=== PATIENT | female | born 1955 | race Two or more races ===

== ENCOUNTER → 2018-01-20 | Day surgery (SDC) | payer OTHER | END | disposition home or self-care (01) | LOC: FMAMMOTONE 08:37 | PROVIDERS: ATTEND Surgery | PROC: 0HBT3ZX Excision of Right Breast, Percutaneous Approach, Diagnostic (ICD-10-PCS; principal; 2018-01-20) | DX: R92.1 Mammographic calcification found on diagnostic imaging of breast (principal); Z53.8 Procedure and treatment not carried out for other reasons | CPT/HCPCS: 19081 ==

== ENCOUNTER 2020-06-19 13:06 | Inpatient (IN) | payer OTHER ==
[2020-06-19] MEDS ORDERED: SODIUM CHLORIDE 0.9% 1000 ML INFUS.BAG IV ONE (13:37)
[2020-06-19] MEDS ORDERED: ONDANSETRON 4 MG/2 ML VIAL IVPUSH ONE (13:37)
--- NOTE | 2020-06-19 13:42 | PDOC ---
History of Present Illness - General Chief Complaint: Lightheaded Stated Complaint: DIZZY, NAUSEA, VOMITING - History of Present Illness Initial Comments: 06/19/20 13:41 64 years old with past medical history significant for tension high cholesterol presents to the emergency department with 2 today 3-day history of lightheadedness worse with change in position associated with nausea and vomiting 2-3 episodes nonbilious non-bloody. Mild left upper quadrant pain. No headache. Denies chest pain shortness of breath but does endorse some left- sided shoulder discomfort. Symptoms are worse with standing alleviated by rest. 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 Past History - Medical History Allergies/Adverse Reactions: Allergies Allergy/AdvReac Type Severity Reaction Status Date / Time No Known Allergies Allergy Verified 05/20/13 20:07 Home Medications: Ambulatory Orders Amlodipine Besylate/Benazepril [Amlodipine-Benazepril 5-20 mg] 1 each PO DAILY 06/19/20 Atorvastatin Ca [Lipitor] 20 mg PO HS 06/19/20 Cyclobenzaprine HCl 5 mg PO DAILY 06/19/20 Ibuprofen 200 mg PO BID 06/19/20 COPD: No HTN: Yes - Reproductive History Is Patient Now?: No - Immunization History Immunization Up to Date: Yes - Psycho-Social/Smoking History Smoking Status: No Smoking History: Never smoked Have you smoked in the past 12 months: No Number of Cigarettes Smoked Daily: 0 Information on smoking cessation initiated: No - Substance Abuse Hx (Audit-C & DAST Scrn) How often the patient has a drink containing alcohol: Never Score: In Men: 4 or > Positive; In Women: 3 or > Positive: 0 Screen Result (Pos requires Nsg. Audit-10AR): Negative In the last yr the pt used illegal drug/Rx for NonMed reason: No Score: Yes response is considered Positive: 0 Screen Result (Positive result requires Nsg. DAST-10): Negative Review of Systems - Review of Systems Comments:: 06/19/20 13:41 ROS: A complete review of 10 out of 10 review of systems is taken and is negative apart from what is previously mentioned below and in the HPI. *Physical Exam - Vital Signs Last Vital Signs Temp Pulse Resp BP Pulse Ox 99 F 65 18 186/84 H 100 06/19/20 13:08 06/19/20 13:08 06/19/20 13:08 06/19/20 13:08 06/19/20 13:08 - Physical Exam 06/19/20 13:41 Vitals: Triage Vital signs reviewed General Appearance: No acute distress, well nourished well developed, Head: Atraumatic, Neck: Supple; no Nucal rigidity Chest Wall: Nontender Cardiac: Regular rate and rhythym, no murmurs, no rubs, no gallops, Lungs: Clear to auscultation bilateral, good air movement bilaterally, Abdomen: Soft, non distended, normal bowel sounds, non tender to palpation Extremities: Full range of motion to all extremities, no cyanosis, clubbing, or edema Skin: Warm and dry, no rashes or lesions, no rash, no petechiae Neuro: AOX3; cranial Nerves 2-12 grossly intact, strength intact to all extremities, sensation intact to all extremities, Slightly unsteady gait Psych: Normal mood, normal affect ED Treatment Course - LABORATORY CBC & Chemistry Diagram: 06/19/20 13:45 06/19/20 13:45 - RADIOLOGY Radiology Studies Ordered: Category Date Time Status HEAD CT (STROKE) [CT] Stat CT Scan 06/19/20 13:37 Ordered CXRPORT [CHEST X-RAY PORTABLE*] [RAD] Stat Radiology 06/19/20 13:29 Ordered Medical Decision Making - Medical Decision Making 06/19/20 13:40 EKG demonstrates sinus rhythm 79 bpm with frequent premature ventricular complexes in a pattern of bigeminy When compared to EKG from 2012 normal sinus rhythm no evidence of PVCs Dizzy with change in position lightheaded no chest pain but left arm discomfort stat EKG ordered. Will check head CT labs troponin observe and reassess Head CT demonstrates no acute pathology patient still with unsteady gait while ambulating. Head CT negative for acute pathology Given new bigeminy and lightheadedness will admit to medicine for further manag ement. Discharge - Discharge Information Problems reviewed: Yes Clinical Impression/Diagnosis: Lightheaded Condition: Stable - Admission Yes - Follow up/Referral - Patient Discharge Instructions - Post Discharge Activity
--- OUTSIDE RECORDS SUMMARY | 2020-06-19 13:58 | XMS ---
:1955 Author Organization [facility] Care Team Providers Name Role Phone Tom Carringtonel Unavailable Unavailable ZebJed Unavailable Unavailable Aszalos, Tarah Rachel Unavailable Unavailable Aszalos, Rachel Unavailable Unavailable Aszalos, Rachel Unavailable Unavailable Aszalos, Rachel Unavailable Unavailable Aszalos, Rachel Unavailable Unavailable Aszalos, Rachel Unavailable Unavailable Aszalos, Rachel Unavailable Unavailable Aszalos, Rachel Unavailable Unavailable Aszalos, Rachel Unavailable Unavailable NEUENDORF BLUE L Unavailable Unavailable Reeves, C Unavailable Unavailable Reeves, C Unavailable Unavailable Reeves, C Unavailable Unavailable Reeves, C Unavailable Unavailable Reeves, C Unavailable Unavailable Reeves, C Unavailable Unavailable Reeves, C Unavailable Unavailable Reeves, C Unavailable Unavailable Reeves, C Unavailable Unavailable Dallin Unavailable [phone] Mares Unavailable Unavailable Mares Unavailable Unavailable Mares Unavailable Unavailable Mares Unavailable Unavailable Mares Unavailable Unavailable Mares Unavailable Unavailable Mares Unavailable Unavailable Mares Unavailable Unavailable Mares Unavailable Unavailable Mares Unavailable Unavailable Amarga Unavailable Unavailable Amarga Unavailable Unavailable Aszalos, Rachel Unavailable Unavailable Aszalos, Rachel Unavailable Unavailable Aszalos, Rachel Unavailable Unavailable Aszalos, Rachel Unavailable Unavailable Aszalos, Rachel Unavailable Unavailable Aszalos, Rachel Unavailable Unavailable Aszalos, Rachel Unavailable Unavailable Aszalos, Rachel Unavailable Unavailable Aszalos, Rachel Unavailable Unavailable Brain, Mallorie ROSA Unavailable Unavailable Brain, Mallorie ROSA Unavailable Unavailable Brain, Mallorie ROSA Unavailable Unavailable Brain, Mallorie ROSA Unavailable Unavailable Brain, Mallorie MD Unavailable Unavailable Brain, Mallorie MD Unavailable Unavailable Brain, Mallorie MD Unavailable Unavailable Brain, Mallorie ROSA Unavailable Unavailable Brain, Mallorie ROSA Unavailable Unavailable Brain, Mallorie ROSA Unavailable Unavailable Brain, Mallorie ROSA Unavailable Unavailable Brain, Mallorie ROSA Unavailable Unavailable Brain, Mallorie ROSA Unavailable Unavailable Brain, Mallorie ROSA Unavailable Unavailable Brain, Mallorie ROSA Unavailable Unavailable [place], M Unavailable [phone] [place], M Unavailable [phone] [place], M Unavailable [phone] BETH GARCIA Unavailable Unavailable ZUNASSIGNED Unavailable Unavailable Ringstad Unavailable Unavailable Ringstad Unavailable Unavailable Ringstad Unavailable Unavailable Ringstad Unavailable Unavailable Ringstad Unavailable Unavailable Ringstad Unavailable Unavailable Ringstad Unavailable Unavailable Ringstad Unavailable Unavailable [place] Unavailable Unavailable [place] Unavailable Unavailable [place] Unavailable Unavailable CHAMBERLAIN BERE Brand Unavailable Unavailable ZUNASSIGNED@, Unavailable Unavailable Re-disclosure Warning The records that you are about to access may contain information from federally- assisted alcohol or drug abuse programs. If such information is present, then the following federally mandated warning applies: This information has been disclosed to you from records protected by federal confidentiality rules (42 CFR part 2). The federal rules prohibit you from making any further disclosure of this information unless further disclosure is expressly permitted by the written consent of the person to whom it pertains or as otherwise permitted by 42 CFR part 2. A general authorization for the release of medical or other information is NOT sufficient for this purpose. The Federal rules restrict any use of the information to criminally investigate or prosecute any alcohol or drug abuse patient.The records that you are about to access may contain highly sensitive health information, the redisclosure of which is protected by Article 27-F of the [facility] Public Health law. If you continue you may haveaccess to information: Regarding HIV / AIDS; Provided by facilities licensed or operated by the [facility] Office of Mental Health; or Provided by the [facility] Office for People With Developmental Disabilities. If such information is present, then the following [facility] mandated warning applies: This information has been disclosed to you from confidential records which are protected by state law. State law prohibits you from making any further disclosure of this information without the specific written consent of the person to whom it pertains, or as otherwise permitted by law. Any unauthorized further disclosure in violation of state law may result in a fine or custodial sentence or both. A general authorization for the release of medical or other information is NOT sufficient authorization for further disclosure. Family History Family Member Family Member Family Member Date of Description Data Source(s) Name Gender Status Status Unknown Female Problem 03/13/2016 STEPHANIE ([facility] ([facility]) 12:00:00 AM [facility] EDT Center) Encounters Encounter Providers Location Date Indications Data Source(s ) Outpatient Attender: Jeanne Aguilar 05/31/2020 [facility] Saroj ephs VelezAdmitter: 11:23:00 Medical nter Jeanne EDT VelezReferrer: Jeanne Mares OutpatientOFFICE/ Attender: [facility] 05/31/2020 STEPHANIE ([facility] OUTPATIENT VISIT, [facility] 11:23:00 [facility] EDT - Center) 05/31/2020 11:23:00 AM EDT Outpatient Attender: 05/31/2020 [facility] Amy ZUNASSIGNEDAdmitt 10:42:00 Medical Center er: AM EDT ZUNASSIGNEDReferr er: [id number] ZUNASSIGNED@, Outpatient Admitter: [id number] 05/31/2020 [facility] ZUNASSIGNED@,Refe 12:00:00 Medical Center rrer: [id number] AM EDT ZUNASSIGNED@, Outpatient Attender: 05/30/2020 [facility] Amy ZUNASSIGNEDAdmitt 10:14:00 [facility] Center er: AM EDT ZUNASSIGNEDReferr er: [id number] ZUNASSIGNED@, Outpatient Admitter: [id number] 05/30/2020 [facility] ZUNASSIGNED@,Refe 12:00:00 Medical Center rrer: [id number] AM EDT ZUNASSIGNED@, (TEL) [address] 05/17/2020 eCW1 ([facility] 12:00:00 Amy Medic al AM EDT Practice PC) (TEL) [address] 05/16/2020 eCW1 ([facility] 12:00:00 Amy Medic al AM EDT Practice PC) (TEL) [address] 05/16/2020 eCW1 ([facility] 12:00:00 Amy Medic al AM EDT Practice PC) Outpatient Attender: CHRISTEL Aguilar 05/15/2020 [facility] CHRISTEL 09:53:00 Medical Cent er MARTINAdmitter: AM EDT CHRISTEL GARCIAReferrer: CHRISTEL GARCIA [facility] ([facility] 09:53:00 Amy Medic al AM EDT - Center) 05/15/2020 09:53:00 AM EDT (TEL) [address] 05/15/2020 eCW1 ([facility] 12:00:00 Amy Medic al AM EDT Practice PC) (TEL) [address] 05/15/2020 eCW1 ([facility] 12:00:00 Amy Medic al AM EDT Practice PC) Outpatient 05/10/2020 [facility] 03:15:00 Medical Center PM EDT Outpatient 05/10/2020 [facility] 03:11:00 Medical Center PM EDT Outpatient Attender: CHRISTEL Aguilar 05/10/2020 [facility] 08:31:00 Medical Cent er MARTINAdmitter: AM EDT CHRISTEL GARCIAReferrer: CHRISTEL GARCIA Attender: Charles 05/10/2020 [facility] ( [facility] 08:31:00 Amy Medic al AM EDT - Center) 05/10/2020 08:31:00 AM EDT Outpatient 05/10/2020 [facility] 12:00:00 Medical Center AM EDT Outpatient [address] 05/10/2020 eCW1 ([facility] 12:00:00 Amy Medic al AM EDT Practice PC) Attender: [facility] 05/09/2020 [facility] ([facility] 09:55:00 Amy Medica l AM EDT - Center) 05/09/2020 09:55:00 AM EDT Outpatient 04/26/2020 [facility] 04:00:00 Medical Center PM EDT Outpatient Attender: CHRISTEL Aguilar 04/26/2020 [facility] CHRISTEL 01:47:00 Medical Cent er RADHAAdmitter: PM EDT CHRISTEL KEARNEY RADHAReferrer: CHRISTEL KEARNEY MARTIN Attender: Charles 04/26/2020 NEXTGEN ( [facility] Dallin 01:47:00 Amy Medic al PM EDT - Center) 04/26/2020 01:47:00 PM EDT Outpatient [address] 04/26/2020 eCW1 ([facility] 12:00:00 Amy Medic al AM EDT Practice PC) Outpatient 04/26/2020 [facility] 12:00:00 Medical Center AM EDT Outpatient Attender: Jeanne Aguilar 04/24/2020 [facility] Saroj yash MaresAdmitter: 05:23:00 Medical Ce nter Jeanne PM EDT VelezReferrer: Jeanne Mares OutpatientOFFICE/ Attender: [facility] 04/24/2020 [facility] ([facility] 05:23:00 Amy Medical EST PM EDT - Center) 04/24/2020 05:23:00 PM EDT Outpatient Attender: BERE Aguilar 04/23/2020 [facility] 01:03:00 Medical Felipe BLACKBURN PM EDT MAdmitter: BERE BLACKBURN MReferrer: BERE Brand Outpatient Attender: BERE Aguilar 04/23/2020 [facility] 08:20:00 Jose Guadalupe BLACKBURN AM EDT MAdmitter: BERE BLACKBURN MReferrer: BERE Brand Attender: Bere 04/23/2020 STEPHANIE ([facility] 08:20:00 Amy Medic al AM EDT - Center) 04/23/2020 08:20:00 AM EDT Outpatient Attender: BLUE Aguilar 04/18/2020 [facility] MC[facility] 07:14:00 Medical C enter LAdmitter: BLUE AM EDT LUZ MCARTHUR LReferrer: BLUE Muñoz Outpatient [address] 04/10/2020 eCW1 ([facility] 12:00:00 Amy Medic al AM EDT Practice PC) Outpatient 04/03/2020 [facility] 03:06:00 Medical Center PM EDT Outpatient Attender: Jeanne Aguilar 04/03/2020 [facility] VelezAdmitter: 01:26:00 Medical Ce nter Jeanne PM EDT VelezReferrer: Jeanne Mares OutpatientOFFICE/ Attender: [facility] 04/03/2020 N EXTGEN ([facility] OUTPATIENT VISIT, [facility] 01:26:00 Amy Medical EST PM EDT - Center) 04/03/2020 01:26:00 PM EDT Outpatient 04/03/2020 [facility] 12:00:00 Medical Center AM EDT Attender: [facility] 04/02/2020 NEXTGEN ([facility] 10:21:00 Amy Medica l AM EDT - Center) 04/02/2020 10:21:00 AM EDT Outpatient 03/06/2020 [facility] 02:18:00 Medical Center PM EDT Outpatient Attender: Jeanne Aguilar 03/06/2020 [facility] VelezAdmitter: 01:33:00 Medical Ce nter Jeanne PM EDT VelezReferrer: Jeanne Mares OutpatientOFFICE/ Attender: [facility] 03/06/2020 N EXTGEN ([facility] OUTPATIENT VISIT, [facility] 01:33:00 Amy Medical EST PM EDT - Center) 03/06/2020 01:33:00 PM EDT Outpatient 03/06/2020 [facility] 12:00:00 Medical Center AM EDT Attender: [facility] 03/02/2020 NEXTGEN ([facility] 09:54:00 Amy Medica l AM EDT - Center) 03/02/2020 09:54:00 AM EDT Attender: [facility] 01/17/2020 NEXTGEN ([facility] 11:53:00 Amy Medical AM EDT - Center) 01/17/2020 11:53:00 AM EDT [facility] 12/21/[facility] BARRY N ([facility] 02:38:00 Amy Medic al PM EDT - Center) 12/21/2019 02:38:00 PM EDT [facility] 11/16/2019 [facility] ([facility] 04:17:00 Amy Medic al PM EDT - Center) 11/16/2019 04:17:00 PM [facility] N ([facility] Brain ROSA [place] 02:56:00 Amy Medica l PM EST - Center) 10/31/2019 02:56:00 PM EST Outpatient 10/25/2019 [facility] 04:21:00 Medical [place] PM EST Outpatient Attender: Tarah Aguilar 10/25/2019 [facility] AszalosAdmitter: 09:04:00 [facility] AM EST AszalosReferrer: Tarah Cassidy OutpatientOFFICE/ [facility] 10/25/2019 STEPHANIE ([facility] OUTPATIENT VISIT, [facility] 09:04:00 Sudheer s Medical EST AM EST - Center) 10/25/2019 09:04:00 AM EST Outpatient 10/25/2019 [facility] 12:00:00 Medical [place] AM EST Outpatient 06/09/2019 [facility] 11:32:00 Medical [place] AM EDT Outpatient Attender: Tarah Aguilar 06/09/2019 [facility] Saroj lewis AszalosAdmitter: 08:58:00 Medical [facility] AM EDT AszalosReferrer: Tarah Cassidy OutpatientOFFICE/ Attender: [facility] 06/09/2019 Olivier AUGUST ([facility] 08:58[facility] Amy Medical EST AM EDT - Center) 06/09/2019 08:58:00 AM EDT Outpatient 06/09/2019 [facility] 12:00:00 Medical [place] AM EDT Attender: [facility] 06/07/2019 [facility] Amy Medica l AM EDT - Center) 06/07/2019 09:18:00 AM EDT [facility] 05/05/2019 BARRY N ([facility] Brain ROSA [place] 11:09:00 Amy Medica l AM EDT - Center) 05/05/2019 11:09:00 AM EDT Attender: [facility] 04/25/2019 BARRY Aguayo ([facility] 03:53:00 Amy Medica l PM EDT - Center) 04/25/2019 03:53:00 PM EDT Immunizations Vaccine Date Status Description Data Source(s) New in 2012. IIV4 05/31/2020 completed Influenza, Injectable, NEXTGEN ([facility] 12:00:[address] [facility] Center) Source: New Immunization Record Medications Medication Brand Start Product Dose Route Administrative Pharm[facility] Indications Reaction Description Data Name Date Form Instructions Instructions Source(s) Ibuprofen ibupro ORAL active take 1 NE XTGEN 200 MG Oral fen 2019 {caps capsule by ( [facility] Capsule 200 mg 12:00: ule} oral route Ruma sephs ibuprofen capsul 00 AM every 6 Medi wojciech 200 mg e EDT hours as Center) capsule needed Cyclobenzap cyclob ORAL active take 1 NEXTGEN rine enzapr 2019 {tabl tablet by (Saint hydrochlori ine 5 12:00: et} oral route 3 Amy de 5 MG mg 00 AM times every Medi wojciech Oral Tablet tablet EDT day Center ) cyclobenzap rine 5 mg tablet Amlodipine amlodi ORAL active take 1 N EXTGEN 5 MG / pine 5 2019 {caps capsule by (Jose Alejandro nt Benazepril mg-tony 12:00: ule} oral route Amy hydrochlori azepri 00 AM every day Medical de 20 MG l 20 EDT Center) Oral mg Capsule capsul amlodipine e 5 mg-benazepr il 20 mg capsule Amlodipine Amlodi .0 suspend Amlodip ine eCW1 5 MG / pine 2019 {tabl ed Besy-Benazep (Jose Alejandro nt Benazepril Besy-B 12:00: et} ril HCl 5- 20 Amy hydrochlori enazep 00 AM MG Medic al de 20 MG ril EDT Practice Oral HCl PC) Capsule 5-20 Amlodipine MG Besy-Benaze pril HCl 5-20 MG Amlodipine Amlodi .0 suspend Amlodip ine eCW1 5 MG / pine 2019 {tabl ed Besy-Benazep (Jose Alejandro nt Benazepril Besy-B 12:00: et} ril HCl 5- 20 Amy hydrochlori enazep 00 AM MG Medic al de 20 MG ril EDT Practice Oral HCl PC) Capsule 5-20 Amlodipine MG Besy-Benaze pril HCl 5-20 MG Amlodipine Amlodi .0 suspend Amlodip ine eCW1 5 MG / 2019 {tabl ed Besy-Benazep (Jose Alejandro nt Benazepril Besy-B 12:00: et} ril HCl 5- 20 Amy hydrochlori enazep 00 AM MG Medic al de 20 MG ril EDT Practice Oral HCl PC) Capsule 5-20 Amlodipine MG Besy-Benaze pril HCl 5-20 MG Amlodipine Amlodi .0 suspend Amlodip ine eCW1 5 MG / 2019 {tabl ed Besy-Benazep (Jose Alejandro nt Benazepril Besy-B 12:00: et} ril HCl 5- 20 Amy hydrochlori enazep 00 AM MG Medic al de 20 MG ril EDT Practice Oral HCl PC) Capsule 5-20 Amlodipine MG Besy-Benaze pril HCl 5-20 MG Amlodipine Amlodi .0 suspend Amlodip ine eCW1 5 MG / 2019 {tabl ed Besy-Benazep (Jose Alejandro nt Benazepril Besy-B 12:00: et} ril HCl 5- 20 Amy hydrochlori enazep 00 AM MG Medic al de 20 MG ril EDT Practice Oral HCl PC) Capsule 5-20 Amlodipine MG Besy-Benaze pril HCl 5-20 MG Amlodipine Amlodi .0 suspend Amlodip ine eCW1 5 MG / 2019 {tabl ed Besy-Benazep (Jose Alejandro nt Benazepril Besy-B 12:00: et} ril HCl 5- 20 Amy hydrochlori enazep 00 AM MG Medic al de 20 MG ril EDT Practice Oral HCl PC) Capsule 5-20 Amlodipine MG Besy-Benaze pril HCl 5-20 MG Amlodipine Amlodi .0 suspend Amlodip ine eCW1 5 MG / 2019 {tabl ed Besy-Benazep (Jose Alejandro nt Benazepril Besy-B 12:00: et} ril HCl 5- 20 Amy hydrochlori enazep 00 AM MG Medic al de 20 MG ril EDT Practice Oral HCl PC) Capsule 5-20 Amlodipine MG Besy-Benaze pril HCl 5-20 MG POLYETHYLEN Nulyte 04/10/ active Nulytel y eCW1 E GLYCOL ly 2020 with Flavor (Jose Alejandro nt [phone] with 12:00: Packs 420 GM J osephs MG/ML / Flavor 00 AM Medical Potassium Packs EDT Practice Chloride 420 GM PC) 0.48396 MEQ/ML / Sodium Bicarbonate 0.017 MEQ/ML / Sodium Chloride 0.0479 MEQ/ML Oral Solution [NuLytely] Nulytely with Flavor Packs 420 GM Hydrochloro hydroc ORAL active take 1 NEXTGEN thiazide 25 hlorot 2020 {tabl tablet by ([facility] MG Oral hiazid 12:00: et} oral route Ruma sephs Tablet e 25 00 AM every day Medical hydrochloro mg EDT Center) thiazide 25 tablet mg tablet Aspirin 81 aspiri ORAL active take 1 N EXTGEN MG Delayed n 81 2020 {tabl tablet by (Sa int Release mg 12:00: et} oral route Christel phs Oral Tablet tablet 00 AM every day Medical aspirin 81 ,delay EDT Center) mg ed tablet,genevieve releas yed release e atorvastati atorva ORAL active take 1 NEXTGEN n 20 MG statin 2020 {tabl tablet by (Jose Alejandro nt Oral Tablet 20 mg 12:00: et} oral route Amy atorvastati tablet 00 AM every day Medical n 20 mg EDT Center) tablet Centrum multiv 03/06/ active take one NE XTGEN Silver it-min 2020 tablet a day (Sa int Women 8 mg /iron/ 12:00: adan Arroyo hs iron-400 folic/ 00 AM prescribed La dical mcg-300 mcg lutein EDT Center ) tablet Hydrochloro hydroc ORAL complet take 1 NEXTGEN thiazide 25 hlorot 2020 {tbl} ed tablet by (Saint MG Oral hiazid 12:00: oral route Ruma sephs Tablet e 25 00 AM every day Medical hydrochloro mg EDT Center) thiazide 25 tablet mg tablet Hydrochloro hydroc ORAL complet take 1 NEXTGEN thiazide 25 hlorot 2020 {tbl} ed tablet by (Saint MG Oral hiazid 12:00: oral route Ruma sephs Tablet e 25 00 AM every day Medical hydrochloro mg EST Center) thiazide 25 tablet mg tablet Shingrix 0.5 ML 06/09/ 0.50 INTRAM active 0.5 ML N EXTGEN (PF) 50 varice 2019 mL USCULA varicella (Sa int mcg/0.5 mL lla 12:00: R zoster virus Amy intramuscul zoster 00 AM glycoprote in Medical ar virus EDT E, Center) suspension, glycop recombinant kit rotein 0.1 MG/ML E, Injection recomb [Shingrix] inant 0.1 MG/ML Inject ion please administer atorvastatin 10 ATORVASTATIN 04/25/2019 completed TAKE 1 NEXTGEN MG Oral Tablet CALCIUM 10MG TAB 12:00:00 AM TABLET BY ( ATORVASTATIN EDT ORAL ROUTE J osephs CALCIUM 10MG TAB EVERY DA Y Medical IN THE [place]) EVENING Amoxicillin 875 Augmentin 875 04/15/2019 completed Amoxicillin NEXTGEN MG / Clavulanate mg-125 mg tablet 12:00:00 AM 875 MG / (Saint 125 MG Oral EDT Clavulanate J osephs Tablet 125 MG Oral Medica l [Augmentin] Tablet [place] ) Augmentin 875 [Augmentin] mg-125 mg tablet Hydrochlorothiazi hydrochlorothiazi 03/14/2019 1 ORAL com pleted take 1 NEXTGEN de 25 MG Oral de 25 mg tablet 12:00:00 AM . tablet by ( Tablet EDT 0 oral route Amy hydrochlorothiazi 0 every d ay Medical de 25 mg tablet { [facility]) t b l } atorvastatin 10 atorvastatin 10 06/17/2018 1 ORAL complet ed take 1 NEXTGEN MG Oral Tablet mg tablet 12:00:00 AM . tablet by ( atorvastatin [address] Amy mg tablet 0 every day Medic al { [place]) t b l } Aspirin 81 MG aspirin 81 mg 06/17/2018 completed chew 1 NEXTGEN Chewable Tablet chewable tablet 12:00:00 AM tablet ( aspirin 81 mg EDT (81MG) by Amy chewable tablet oral rout e Medical every day [place]) Insurance Providers Payer name Policy type Policy ID Covered Covered constitution party's Policy P shanita / Coverage constitution party ID relationship to [place] [facility] ormation type [place]ark SELF PAY SP INSURANCE [employer] W [id number] 01 [id number] [place] [id number] 01 [id number] [place] O [id number] 01 [id number] 200 [employer]ENTIALS-[employer] MMERCIAL W [id number] Problems, Conditions, and Diagnoses Code Display Name Description Problem Type Effective Data Dates Source(s) I10 [id number] Essential Problem 04/26/2020 eCW1 ([facility] hypertension 12:00:00 AM [facility]) Z23 Encounter for ENCOUNTER FOR Diagnosis 05/31/2020 [facility] immunization IMMUNIZATION 11:23:00 AM [facility] M43.6 Torticollis TORTICOLLIS Diagnosis 05/31/2020 [facility] 11:23:00 AM [facility] R94.31 Abnormal ABNORMAL Diagnosis 05/15/2020 [facility] electrocardiogram ELECTROCARDIOGRAM 09:53:00 AM [facility] [ECG] [EKG] (ECG) (EKG) [facility] R00.1 Bradycardia, BRADYCARDIA, Diagnosis 05/10/2020 [facility] unspecified UNSPECIFIED 08:31:00 AM [facility] I10 Essential (primary) ESSENTIAL (PRIMARY) Diagnosis 020 [facility] hypertension HYPERTENSION 08:31:00 AM [facility] E78.5 Hyperlipidemia, HYPERLIPIDEMIA, Diagnosis 04/03/2020 Srinivasan t unspecified UNSPECIFIED 01:26:00 PM [facility] R73.03 Prediabetes PREDIABETES Diagnosis 04/03/2020 [facility] 01:26:00 PM [facility] Z71.89 Other specified OTHER SPECIFIED Diagnosis 03/06/2020 Srinivasan t counseling COUNSELING 01:33:00 PM [facility] Z71.3 Dietary counseling DIETARY COUNSELING Diagnosis 0 [facility] and surveillance AND SURVEILLANCE 01:33:00 PM [facility] M21.249 Flexion deformity, FLEXION DEFORMITY, Diagnosis 0 [facility] unspecified finger UNSPECIFIED FINGER 01:33:00 PM [facility] joints JOINTS [facility] Z12.11 Encounter for ENCOUNTER FOR Diagnosis 03/06/2020 [facility] screening for SCREENING FOR 01:33:00 PM [facility] malignant neoplasm of MALIGNANT NEOPLASM [facility] colon OF COLON Center Z71.9 Counseling, COUNSELING, Diagnosis 10/25/2019 unspecified UNSPECIFIED 09:04:[address] [facility] N63.10 Unspecified lump in UNSPECIFIED LUMP IN Diagnosis 020 [facility] the right breast, THE RIGHT BREAST, 09:04:00 AM [facility] unspecified quadrant UNSPECIFIED QUADRANT [facility] Z12.31 Encounter for ENCNTR SCREEN Diagnosis 10/25/2019 [facility] screening mammogram MAMMOGRAM FOR 09:04:00 AM J osephs for malignant MALIGNANT NEOPLASM EST Med ical neoplasm of breast OF BREAST [place] M25.512 Pain in left shoulder PAIN IN LEFT Diagnosis 10/25/2019 S aint SHOULDER 09:04:[address] [facility] E66.9 Obesity, unspecified OBESITY, UNSPECIFIED Diagnosis 06/09 [facility] 08:58:00 AM [facility] Z00.00 Encounter for general ENCNTR FOR GENERAL Diagnosis 2018 [facility] adult medical ADULT MEDICAL EXAM 08:58:00 AM Ruma sephs examination without W/O ABNORMAL EDT Med ical abnormal findings FINDINGS Center Surgeries/Procedures Procedure Description Date Indications Data Source(s) Influenza, Injectable, 3 05/31/2020 NEX TGEN ([facility] Yrs Or Older 12:00:[address] [facility] - 05/31/2020 [place]) 12:00:00 AM EDT Immunization 05/31/2020 NEXTGEN ([facility] Administration 12:00:00 AM EDT [facility] dical - 05/31/2020 [place]) 12:00:00 AM EDT OFFICE/OUTPATIENT VISIT, 05/31/2020 NEX TGEN ([facility] EST 12:00:00 AM EDT [facility] 05/31/2020 [place]) 12:00:00 AM EDT OFFICE/OUTPATIENT VISIT, 04/24/2020 NEX TGEN ([facility] EST 12:00:[address] [facility] - 04/24/2020 [place]) 12:00:00 AM EDT OFFICE/OUTPATIENT VISIT, 04/03/2020 NEX TGEN ([facility] EST 12:00:[address] [facility] - 04/03/2020 [place]) 12:00:00 AM EDT OFFICE/OUTPATIENT VISIT, 03/06/2020 NEX TGEN [facility] [place] 12:00:00 AM EDT ROUTINE VENIPUNCTURE 03/06/2020 NEXTGEN ([facility] 12:00:[address] [facility] - 03/06/2020 [place]) 12:00:00 AM EDT OFFICE/OUTPATIENT VISIT, 10/25/2019 NEX TGEN ([facility] EST 12:00:[address] [facility] - 10/25/2019 [place]) 12:00:00 AM EST OFFICE/OUTPATIENT VISIT, 06/09/2019 NEX TGEN ([facility] EST 12:00:[address] [facility] - 06/09/2019 [place]) 12:00:00 AM EDT ROUTINE VENIPUNCTURE 06/09/2019 NEXTGEN ([facility] 12:00:[address] [facility] - 06/09/2019 [place]) 12:00:00 AM EDT Results ID Date Data Source [id number] 06/05/2020 12:00:00 PM EDT [facility] Name Value Range Interpretation Description Data Sup porting Code Source(s) Document(s ) SARS [facility] coronavirus 2 RNA This lab was ordered by [facility] and reported by [email or web address]. ID Date Data Source GFR(Creatinine).[id number] 05/10/2020 03:15:00 PM EDT [facility] 0-0400 Name Value Range Interpretation Code Description Data Val rce(s) Supporting Document(s ) UNK > 60 Below low normal <content [facility] styleCode="Bold"> Medical Cent er EGFR </content>48 GFR L<content styleCode="Italic s"> (> 60 GFR)</content> ID Date Data Source BMP.[id number] 05/10/2020 03:15:00 PM EDT [facility] Name Value Range Interpretation Description Data Sup porting Code Source(s) Document(s ) Chloride 98-107 <content [facility] [Moles/volume] styleCode="Dinesh Amy in Serum or d">Chloride Medical Plasma </content>103 Center MEQ/L<content styleCode="Maricarmen lics"> (98-107 MEQ/L)</conten t> Sodium 137-145 <content [facility] [Moles/volume] styleCode="Dinesh Amy in Serum or d">Sodium Medical Plasma </content>138 Center MEQ/L<content styleCode="Maricarmen lics"> (137-145 MEQ/L)</conten t> Carbon 22-30 <content [facility] dioxide, total styleCode="Dinesh Amy [Moles/volume] d">Carbon Medical in Serum or Dioxide Center Plasma </content>29 MEQ/L<content styleCode="Maricarmen lics"> (22-30 MEQ/L)</conten t> Potassium 3.5-5.3 <content [facility] [Moles/volume] styleCode="Dinesh Amy in Serum or d">Potassium Medical Plasma </content>4.1 Center MEQ/L<content styleCode="Maricarmen lics"> (3.5-5.3 MEQ/L)</conten t> UNK 7-17 <content [facility] styleCode="Dinesh Amy d">BUN Medical </content>17 Center MG/DL<content styleCode="Maricarmen lics"> (7-17 MG/DL)</conten t> Calcium 8.4-10.2 <content [facility] [Mass/volume] styleCode="Dinseh Amy in Serum or d">Calcium Medical Plasma </content>9.8 Center MG/DL<content styleCode="Maricarmen lics"> (8.4-10.2 MG/DL)</conten t> Glucose 74-106 <content [facility] [Mass/volume] styleCode="Dinesh Amy in Serum or d">Glucose Medical Plasma </content>91 Center MG/DL<content styleCode="Maricarmen lics"> (74-106 MG/DL)</conten t> UNK > 60 Below low normal <content [facility] styleCode="Dinesh Amy d">EGFR Medical </content>48 Center GFR L<content styleCode="Maricarmen lics"> (> 60 GFR)</content> Creatinine 0.5-1.3 <content [facility] [Mass/volume] styleCode="Dinesh Amy in Serum or d">Creatinine Medical Plasma </content>1.2 Center MG/DL<content styleCode="Maricarmen lics"> (0.5-1.3 MG/DL)</conten t> ID Date Data Source cvc ecg 05/10/2020 04:50:19 AM EDT eCW1 ([facility] ) Name Value Range Interpretation Code Description Data Val rce(s) Supporting Document(s ) cvc ecg eCW1 ([facility]) ID Date Data Source ECG Midmark 05/10/2020 03:45:51 AM EDT eCW1 ([facility]) Name Value Range Interpretation Code Description Data Val rce(s) Supporting Document(s ) ECG Midmark eCW1 ([facility]) ID Date Data Source Echocardiogram 05/08/2020 12:45:43 PM EDT eCW1 ([facility]) Name Value Range Interpretation Code Description Data Val rce(s) Supporting Document(s ) Echocardiogram eCW1 ([facility]) ID Date Data Source [id number] 04/18/2020 12:00:00 AM EDT [facility] Name Value Range Interpretation Code Description Data Val rce(s) Supporting Document(s ) 2019-nCoV [facility] RNA XXX DELVIS+probe- Imp This lab was ordered by [facility] and reported by [email or web address] [facility]. ID Date Data Source Liver 03/08/2020 10:40:[address] [facility] Profile.[id number] Name Value Range Interpretation Description Data Sup porting Code Source(s) Document(s ) Alkaline 38-126 <content [facility] phosphatase styleCode="Bold"> Amy [Enzymatic Alkaline Medical activity/volume] Phosphatase (ALP) Cente r in Serum or Plasma </content>72 IU/L<content styleCode="Italic s"> (38-126 IU/L)</content> Aspartate 14-36 <content [facility] aminotransferase styleCode="Bold"> [facility] hs [Enzymatic Aspartate Medical activity/volume] Aminotransferase Center in Serum or Plasma (AST) </content>25 IU/L<content styleCode="Italic s"> (14-36 IU/L)</content> Alanine 7-30 <content [facility] aminotransferase styleCode="Bold"> Cruz hs [Enzymatic Alanine Medical activity/volume] Aminotransferase Center in Serum or Plasma (ALT) </content>11 IU/L<content styleCode="Italic s"> (7-30 IU/L)</content> Bilirubin.total 0.2-1.3 <content [facility] [Mass/volume] in styleCode="Bold"> [facility] hs Serum or Plasma Bilirubin Total Medical </content>0.7 Center MG/DL<content styleCode="Italic s"> (0.2-1.3 MG/DL)</content> Albumin 3.5-5.0 <content [facility] [Mass/volume] in styleCode="Bold"> Cruz hs Serum or Plasma Albumin Medical </content>3.8 Center G/DL<content styleCode="Italic s"> (3.5-5.0 G/DL)</content> ID Date Data Source LIPID.[id number] 03/08/2020 10:40:00 AM EDT [facility] Name Value Range Interpretation Description Data Sup porting Code Source(s) Document(s ) Triglyceride < 150 <content [facility] [Mass/volume] in styleCode="[facility] Serum or Plasma d">Triglycerid [facility] </content>58 MG/DL<content styleCode="Maricarmen lics"> (< 150 MG/DL)</conten t> UNK > 60 Below low normal <content [facility] styleCode="[facility] d">HDL- Medical Cholesterol [place] </content>54 MG/DL L<content styleCode="Maricarmen lics"> (> 60 MG/DL)</conten t> Cholesterol -<200 <content [facility] [Mass/volume] in styleCode="[facility] Serum or Plasma d">Cholesterol Medical </content>183 Center MG/DL<content styleCode="Maricarmen lics"> (-<200 MG/DL)</conten t> UNK < 100 Above high normal <content [facility] styleCode="Dinesh Amy d">LDL-Cholest [facility] </content>117 MG/DL H<content styleCode="Maricarmen lics"> (< 100 MG/DL)</conten t> ID Date Data Source HematologyRou.[id number] 03/08/2020 10:40:00 AM EDT [facility] 0400 Name Value Range Interpretation Description Data Sup porting Code Source(s) Document(s ) Leukocytes 4.4-11.0 <content [facility] [#/volume] in styleCode="Bold Amy Blood by ">White Blood Medical Automated count Cell Count Center </content>4.87 KCUMM<content styleCode="Ital ics"> (4.4-11.0 KCUMM)</content > Erythrocytes 4.0-5.1 Below low normal <content [facility] [#/volume] in styleCode="Bold Amy Blood by ">Red Blood Medical Automated count Cell Count Center </content>3.88 MCUMM L<content styleCode="Ital ics"> (4.0-5.1 MCUMM)</content > Hemoglobin 12.3-16. Below low normal <content [facility] [Mass/volume] in 0 styleCode="Bold Amy Blood ">Hemoglobin Medical </content>11.9 Center G/DL L<content styleCode="Ital ics"> (12.3-16.0 G/DL)</content> Erythrocyte mean 80.0-100 <content [facility] corpuscular .0 styleCode="Bold Amy volume [Entitic ">Mean Medical volume] by Corpuscular Center Automated count Volume </content>94.3 FL<content styleCode="Ital ics"> (80.0-100.0 FL)</content> Erythrocyte mean 26.0-34. <content [facility] corpuscular 0 styleCode="Bold Amy hemoglobin ">Mean Medical [Entitic mass] Corposcular Center by Automated Hemoglobin count </content>30.7 PG<content styleCode="Ital ics"> (26.0-34.0 PG)</content> Hematocrit 36.0-46. <content [facility] [Volume 0 styleCode="Bold Amy Fraction] of ">Hematocrit Medical Blood by </content>36.6 Center Automated count %<content styleCode="Ital ics"> (36.0-46.0 %)</content> Erythrocyte 11.5-14. <content [facility] distribution 5 styleCode="Bold Amy width [Ratio] by ">Red Cell Medical Automated count Distribution Center Width </content>13.7 %<content styleCode="Ital ics"> (11.5-14.5 %)</content> Erythrocyte mean 32.0-37. <content [facility] corpuscular 0 styleCode="Bold Amy hemoglobin ">Mean Corpus. Medical concentration Hgb Center [Mass/volume] by Concentration Automated count (MCHC) </content>32.5 G/DL<content styleCode="Ital ics"> (32.0-37.0 G/DL)</content> Platelet mean 8.0-11.0 Above high <content [facility] volume [Entitic normal styleCode="Bold Amy volume] in Blood ">Mean Platelet Medical by Automated Volume Center count </content>13.8 FL H<content styleCode="Ital ics"> (8.0-11.0 FL)</content> Platelets 130-400 Below low normal <content [facility] [#/volume] in styleCode="Bold Amy Blood by ">Platelet Medical Automated count Count Center </content>91 KCUMM L<content styleCode="Ital ics"> (130-400 KCUMM)</content > UNK 0.0 <content [facility] styleCode="Bold Amy ">Nucleated Red Medical Blood Cell Center Count </content>0.00 KCUMM<content styleCode="Ital ics"> (0.0 KCUMM)</content > UNK 0 <content [facility] styleCode="Bold Amy ">Nucleated Red Medical Blood Cell Center </content>0.0 /100<content styleCode="Ital ics"> (0 /100)</content> ID Date Data Source GFR(Creatinine).[id number] 03/08/2020 10:40:00 AM EDT [facility] 0-0400 Name Value Range Interpretation Code Description Data Val rce(s) Supporting Document(s ) UNK > 60 <content [facility] styleCode="Bold"> Medical Cent er EGFR </content>67 GFR<content styleCode="Italic s"> (> 60 GFR)</content> ID Date Data Source CHMROUTINECCDA.[id number] 03/08/2020 10:40:00 AM EDT [facility] -0400 Name Value Range Interpretation Description Data Sup porting Code Source(s) Document(s ) UNK >= 1.0 <content [facility] styleCode="Bold Medical ">AG Ratio Center </content>1.3 <content styleCode="Ital ics"> (>= 1.0 )</content> UNK 4.2-5.8 <content [facility] styleCode="Bold Medical ">Hemoglobin Center A1C </content>5.8 %<content styleCode="Ital ics"> (4.2-5.8 %)</content> Protein 6.3-8.2 <content [facility] [Mass/volum styleCode="Bold Medical e] in Serum ">Total Protein Center or Plasma </content>6.8 G/DL<content styleCode="Ital ics"> (6.3-8.2 G/DL)</content> UNK 2.3-3.5 <content [facility] styleCode="Bold Medical ">Globulin Center </content>3.0 G/DL<content styleCode="Ital ics"> (2.3-3.5 G/DL)</content> ID Date Data Source [facility].[id number] 03/08/2020 10:40:00 AM EDT [facility] Name Value Range Interpretation Description Data Sup porting Code Source(s) Document(s ) Sodium 137-145 <content [facility] [Moles/volume] in styleCode="Bold"> [facility] Serum or Plasma Sodium Medical </content>139 Center MEQ/L<content styleCode="Italic s"> (137-145 MEQ/L)</content> Potassium 3.5-5.3 <content [facility] [Moles/volume] in styleCode="Bold"> [facility] Serum or Plasma Potassium Medical </content>3.9 Center MEQ/L<content styleCode="Italic s"> (3.5-5.3 MEQ/L)</content> Chloride 98-107 <content [facility] [Moles/volume] in styleCode="Bold"> [facility] Serum or Plasma Chloride Medical </content>105 Center MEQ/L<content styleCode="Italic s"> (98-107 MEQ/L)</content> Creatinine 0.5-1.3 <content [facility] [Mass/volume] in styleCode="Bold"> [facility] hs Serum or Plasma Creatinine Medical </content>0.9 Center MG/DL<content styleCode="Italic s"> (0.5-1.3 MG/DL)</content> Glucose 74-106 Above high <content [facility] [Mass/volume] in normal styleCode="Bold"> [facility] hs Serum or Plasma Glucose Medical </content>108 Center MG/DL H<content styleCode="Italic s"> (74-106 MG/DL)</content> Calcium 8.4-10. <content [facility] [Mass/volume] in 2 styleCode="Bold"> [facility] hs Serum or Plasma Calcium Medical </content>9.8 Center MG/DL<content styleCode="Italic s"> (8.4-10.2 MG/DL)</content> Carbon dioxide, 22-30 <content [facility] total styleCode="Bold"> Amy [Moles/volume] in Carbon Dioxide Medical Serum or Plasma </content>26 Center MEQ/L<content styleCode="Italic s"> (22-30 MEQ/L)</content> UNK 7-17 Above high <content [facility] normal styleCode="Bold"> Amy BUN </content>18 Medical MG/DL H<content Center styleCode="Italic s"> (7-17 MG/DL)</content> Alanine 7-30 <content [facility] aminotransferase styleCode="Bold"> [facility] hs [Enzymatic Alanine Medical activity/volume] Aminotransferase Center in Serum or Plasma (ALT) </content>11 IU/L<content styleCode="Italic s"> (7-30 IU/L)</content> Aspartate 14-36 <content [facility] aminotransferase styleCode="Bold"> Cruz hs [Enzymatic Aspartate Medical activity/volume] Aminotransferase Center in Serum or Plasma (AST) </content>25 IU/L<content styleCode="Italic s"> (14-36 IU/L)</content> Alkaline 38-126 <content [facility] phosphatase styleCode="Bold"> Amy [Enzymatic Alkaline Medical activity/volume] Phosphatase (ALP) Cente r in Serum or Plasma </content>72 IU/L<content styleCode="Italic s"> (38-126 IU/L)</content> UNK > 60 <content [facility] styleCode="Bold"> Amy EGFR </content>67 Medical GFR<content Center styleCode="Italic s"> (> 60 GFR)</content> Bilirubin.total 0.2-1.3 <content [facility] [Mass/volume] in styleCode="Bold"> [facility] hs Serum or Plasma Bilirubin Total Medical </content>0.7 Center MG/DL<content styleCode="Italic s"> (0.2-1.3 MG/DL)</content> Albumin 3.5-5.0 <content [facility] [Mass/volume] in styleCode="Bold"> [facility] hs Serum or Plasma Albumin Medical </content>3.8 Center G/DL<content styleCode="Italic s"> (3.5-5.0 G/DL)</content> ID Date Data Source Liver 10/25/2019 10:26:[address] [facility] Profile.[id number] Name Value Range Interpretation Description Data Sup porting Code Source(s) Document(s ) Aspartate 14-36 <content [facility] aminotransferase styleCode="Bold"> Cruz hs [Enzymatic Aspartate Medical activity/volume] Aminotransferase Center in Serum or Plasma (AST) </content>32 IU/L<content styleCode="Italic s"> (14-36 IU/L)</content> Albumin 3.5-5.0 <content [facility] [Mass/volume] in styleCode="Bold"> [facility] hs Serum or Plasma Albumin Medical </content>4.1 Center G/DL<content styleCode="Italic s"> (3.5-5.0 G/DL)</content> Bilirubin.total 0.2-1.3 <content [facility] [Mass/volume] in styleCode="Bold"> Cruz hs Serum or Plasma Bilirubin Total Medical </content>0.5 Center MG/DL<content styleCode="Italic s"> (0.2-1.3 MG/DL)</content> Alkaline 38-126 <content [facility] phosphatase styleCode="Bold"> Amy [Enzymatic Alkaline Medical activity/volume] Phosphatase (ALP) Cente r in Serum or Plasma </content>90 IU/L<content styleCode="Italic s"> (38-126 IU/L)</content> Alanine 7-30 <content [facility] aminotransferase styleCode="Bold"> Cruz hs [Enzymatic Alanine Medical activity/volume] Aminotransferase Center in Serum or Plasma (ALT) </content>19 IU/L<content styleCode="Italic s"> (7-30 IU/L)</content> ID Date Data Source GFR(Creatinine).[id number] 10/25/2019 10:26:00 AM [facility] 0-0500 Name Value Range Interpretation Code Description Data Val rce(s) Supporting Document(s ) UNK > 60 Below low normal <content [facility] styleCode="Bold"> Medical Cent er EGFR </content>59 GFR L<content styleCode="Italic s"> (> 60 GFR)</content> ID Date Data Source SHARIF.[id number] 10/25/2019 10:26:00 AM [facility] -0500 Name Value Range Interpretation Description Data Sup porting Code Source(s) Document(s ) UNK >= 1.0 <content [facility] Amy styleCode="Bold Medical ">AG Ratio Center </content>1.4 <content styleCode="Ital ics"> (>= 1.0 )</content> UNK 2.3-3.5 <content [facility] Amy styleCode="Bold Medical ">Globulin Center </content>3.0 G/DL<content styleCode="Ital ics"> (2.3-3.5 G/DL)</content> Protein 6.3-8.2 <content [facility] [Mass/volum styleCode="Bold Medical e] in Serum ">Total Protein Center or Plasma </content>7.1 G/DL<content styleCode="Ital ics"> (6.3-8.2 G/DL)</content> ID Date Data Source BMP.[id number] 10/25/2019 10:26:00 AM [facility] Name Value Range Interpretation Description Data Sup porting Code Source(s) Document(s ) Potassium 3.5-5.3 <content [facility] [Moles/volume] in styleCode="Bold"> [facility] Serum or Plasma Potassium Medical </content>4.1 Center MEQ/L<content styleCode="Italic s"> (3.5-5.3 MEQ/L)</content> Chloride 98-107 <content [facility] [Moles/volume] in styleCode="Bold"> [facility] Serum or Plasma Chloride Medical </content>103 Center MEQ/L<content styleCode="Italic s"> (98-107 MEQ/L)</content> Sodium 137-145 <content [facility] [Moles/volume] in styleCode="Bold"> [facility] Serum or Plasma Sodium Medical </content>141 Center MEQ/L<content styleCode="Italic s"> (137-145 MEQ/L)</content> Creatinine 0.5-1.3 <content [facility] [Mass/volume] in styleCode="Bold"> [facility] hs Serum or Plasma Creatinine Medical </content>1.0 Center MG/DL<content styleCode="Italic s"> (0.5-1.3 MG/DL)</content> UNK 7-17 <content [facility] styleCode="Bold"> Amy BUN </content>15 Medical MG/DL<content Center styleCode="Italic s"> (7-17 MG/DL)</content> Carbon dioxide, 22-30 Above high <content [facility] total normal styleCode="Bold"> Amy [Moles/volume] in Carbon Dioxide Medical Serum or Plasma </content>31 Center MEQ/L H<content styleCode="Italic s"> (22-30 MEQ/L)</content> Calcium 8.4-10. <content [facility] [Mass/volume] in 2 styleCode="Bold"> [facility] hs Serum or Plasma Calcium Medical </content>10.1 Center MG/DL<content styleCode="Italic s"> (8.4-10.2 MG/DL)</content> Glucose 74-106 <content [facility] [Mass/volume] in styleCode="Bold"> [facility] hs Serum or Plasma Glucose Medical </content>94 Center MG/DL<content styleCode="Italic s"> (74-106 MG/DL)</content> UNK > 60 Below low <content [facility] normal styleCode="Bold"> Amy EGFR </content>59 Medical GFR L<content Center styleCode="Italic s"> (> 60 GFR)</content> Aspartate 14-36 <content [facility] aminotransferase styleCode="Bold"> [facility] hs [Enzymatic Aspartate Medical activity/volume] Aminotransferase Center in Serum or Plasma (AST) </content>32 IU/L<content styleCode="Italic s"> (14-36 IU/L)</content> Alanine 7-30 <content [facility] aminotransferase styleCode="Bold"> [facility] hs [Enzymatic Alanine Medical activity/volume] Aminotransferase Center in Serum or Plasma (ALT) </content>19 IU/L<content styleCode="Italic s"> (7-30 IU/L)</content> Alkaline 38-126 <content [facility] phosphatase styleCode="Bold"> Amy [Enzymatic Alkaline Medical activity/volume] Phosphatase (ALP) Cente r in Serum or Plasma </content>90 IU/L<content styleCode="Italic s"> (38-126 IU/L)</content> Bilirubin.total 0.2-1.3 <content [facility] [Mass/volume] in styleCode="Bold"> [facility] hs Serum or Plasma Bilirubin Total Medical </content>0.5 Center MG/DL<content styleCode="Italic s"> (0.2-1.3 MG/DL)</content> Albumin 3.5-5.0 <content [facility] [Mass/volume] in styleCode="Bold"> [facility] hs Serum or Plasma Albumin Medical </content>4.1 Center G/DL<content styleCode="Italic s"> (3.5-5.0 G/DL)</content> ID Date Data Source Liver 06/09/2019 10:54:[address] [facility] Profile.[id number] Name Value Range Interpretation Description Data Sup porting Code Source(s) Document(s ) Aspartate 14-36 <content [facility] aminotransferase styleCode="Bold"> Cruz hs [Enzymatic Aspartate Medical activity/volume] Aminotransferase Center in Serum or Plasma (AST) </content>30 IU/L<content styleCode="Italic s"> (14-36 IU/L)</content> Bilirubin.total 0.2-1.3 <content [facility] [Mass/volume] in styleCode="Bold"> [facility] hs Serum or Plasma Bilirubin Total Medical </content>0.6 Center MG/DL<content styleCode="Italic s"> (0.2-1.3 MG/DL)</content> Albumin 3.5-5.0 <content [facility] [Mass/volume] in styleCode="Bold"> [facility] hs Serum or Plasma Albumin Medical </content>3.7 Center G/DL<content styleCode="Italic s"> (3.5-5.0 G/DL)</content> Alkaline 38-126 <content [facility] phosphatase styleCode="Bold"> Amy [Enzymatic Alkaline Medical activity/volume] Phosphatase (ALP) Cente r in Serum or Plasma </content>75 IU/L<content styleCode="Italic s"> (38-126 IU/L)</content> Alanine 7-30 <content [facility] aminotransferase styleCode="Bold"> Cruz hs [Enzymatic Alanine Medical activity/volume] Aminotransferase Center in Serum or Plasma (ALT) </content>17 IU/L<content styleCode="Italic s"> (7-30 IU/L)</content> ID Date Data Source LIPID.[id number] 06/09/2019 10:54:00 AM EDT [facility] Center Name Value Range Interpretation Description Data Sup porting Code Source(s) Document(s ) Triglyceride < 150 <content [facility] [Mass/volume] in styleCode="Dinesh Amy Serum or Plasma d">Triglycerid Medical Center </content>45 MG/DL<content styleCode="Maricarmen lics"> (< 150 MG/DL)</conten t> Cholesterol -<200 <content [facility] [Mass/volume] in styleCode="Dinesh Amy Serum or Plasma d">Cholesterol Medical </content>171 Center MG/DL<content styleCode="Maricarmen lics"> (-<200 MG/DL)</conten t> UNK > 60 Below low normal <content [facility] styleCode="Dinesh Willards d">HDL- Medical Cholesterol Center </content>49 MG/DL L<content styleCode="Maricarmen lics"> (> 60 MG/DL)</conten t> UNK < 100 Above high normal <content [facility] styleCode="Dinesh Willards d">LDL-Cholest Medical [facility] </content>113 MG/DL H<content styleCode="Maricarmen lics"> (< 100 MG/DL)</conten t> ID Date Data Source HematologyRou.[id number] 06/09/2019 10:54:00 AM EDT [facility] 0400 Name Value Range Interpretation Description Data Sup porting Code Source(s) Document(s ) Leukocytes 4.4-11.0 <content [facility] [#/volume] in styleCode="Bold Amy Blood by ">White Blood Medical Automated count Cell Count Center </content>5.18 KCUMM<content styleCode="Ital ics"> (4.4-11.0 KCUMM)</content > Hemoglobin 12.3-16. Below low normal <content [facility] [Mass/volume] in 0 styleCode="Bold Amy Blood ">Hemoglobin Medical </content>12.1 Center G/DL L<content styleCode="Ital ics"> (12.3-16.0 G/DL)</content> Erythrocytes 4.0-5.1 Below low normal <content [facility] [#/volume] in styleCode="Bold Amy Blood by ">Red Blood Medical Automated count Cell Count Center </content>3.94 MCUMM L<content styleCode="Ital ics"> (4.0-5.1 MCUMM)</content > Erythrocyte mean 26.0-34. <content [facility] corpuscular 0 styleCode="Bold Amy hemoglobin ">Mean Medical [Entitic mass] Corposcular Center by Automated Hemoglobin count </content>30.7 PG<content styleCode="Ital ics"> (26.0-34.0 PG)</content> Erythrocyte mean 80.0-100 <content [facility] corpuscular .0 styleCode="Bold Amy volume [Entitic ">Mean Medical volume] by Corpuscular Center Automated count Volume </content>96.2 FL<content styleCode="Ital ics"> (80.0-100.0 FL)</content> Erythrocyte mean 32.0-37. Below low normal <content [facility] corpuscular 0 styleCode="Bold Amy hemoglobin ">Mean Corpus. Medical concentration Hgb Center [Mass/volume] by Concentration Automated count (MCHC) </content>31.9 G/DL L<content styleCode="Ital ics"> (32.0-37.0 G/DL)</content> Hematocrit 36.0-46. <content [facility] [Volume 0 styleCode="Bold Amy Fraction] of ">Hematocrit Medical Blood by </content>37.9 Center Automated count %<content styleCode="Ital ics"> (36.0-46.0 %)</content> Platelets 130-400 <content [facility] [#/volume] in styleCode="Bold Amy Blood by ">Platelet Medical Automated count Count Center </content>159 KCUMM<content styleCode="Ital ics"> (130-400 KCUMM)</content > Erythrocyte 11.5-14. <content [facility] distribution 5 styleCode="Bold May width [Ratio] by ">Red Cell Medical Automated count Distribution Center Width </content>13.4 %<content styleCode="Ital ics"> (11.5-14.5 %)</content> UNK 1.6-7.3 <content [facility] styleCode="Bold Amy ">Neutrophil Medical Count Center </content>2.65 KCUMM<content styleCode="Ital ics"> (1.6-7.3 KCUMM)</content > Neutrophils 36-66 <content [facility] [#/volume] in styleCode="Bold Amy Blood by ">Neutrophil Medical Automated count </content>51.1 Center %<content styleCode="Ital ics"> (36-66 %)</content> Platelet mean 8.0-11.0 Above high <content [facility] volume [Entitic normal styleCode="Bold Amy volume] in Blood ">Mean Platelet Medical by Automated Volume Center count </content>13.2 FL H<content styleCode="Ital ics"> (8.0-11.0 FL)</content> Monocytes 3.0-10.0 <content Saint [#/volume] in styleCode="Bold Amy Blood by ">Monocyte Medical Automated count </content>7.9 Center %<content styleCode="Ital ics"> (3.0-10.0 %)</content> UNK 0.2-0.9 <content Saint styleCode="Bold Amy ">Monocyte Medical Count Center </content>0.41 KCUMM<content styleCode="Ital ics"> (0.2-0.9 KCUMM)</content > Lymphocytes 24.0-44. <content Saint [#/volume] in 0 styleCode="Bold Amy Blood by ">Lymphocyte Medical Automated count </content>36.3 Center %<content styleCode="Ital ics"> (24.0-44.0 %)</content> UNK 1.0-4.8 <content Saint styleCode="Bold Amy ">Lymphocyte Medical Count Center </content>1.88 KCUMM<content styleCode="Ital ics"> (1.0-4.8 KCUMM)</content > UNK 0.0-0.3 <content Saint styleCode="Bold Amy ">Basophil Medical Count Center </content>0.04 KCUMM<content styleCode="Ital ics"> (0.0-0.3 KCUMM)</content > UNK 0.0-0.6 <content Saint styleCode="Bold Amy ">Eosinophil Medical Count Center </content>0.19 KCUMM<content styleCode="Ital ics"> (0.0-0.6 KCUMM)</content > UNK 0 <content Saint styleCode="Bold Amy ">Nucleated Red Medical Blood Cell Center </content>0.0 /100<content styleCode="Ital ics"> (0 /100)</content> Eosinophils 0-5.0 <content Saint [#/volume] in styleCode="Bold Amy Blood by ">Eosinophil Medical Automated count </content>3.7 Center %<content styleCode="Ital ics"> (0-5.0 %)</content> Basophils 0.0-1.0 <content Saint [#/volume] in styleCode="Bold Amy Blood by ">Basophil Medical Automated count </content>0.8 Center %<content styleCode="Ital ics"> (0.0-1.0 %)</content> UNK < 1 <content Saint styleCode="Bold Amy ">Immature Medical Granulocyte Center Ratio </content>0.2 %<content styleCode="Ital ics"> (< 1 %)</content> UNK 0.0 <content Saint styleCode="Bold Amy ">Nucleated Red Medical Blood Cell Center Count </content>0.00 KCUMM<content styleCode="Ital ics"> (0.0 KCUMM)</content > UNK 0-0.1 <content Saint styleCode="Bold Amy ">Immature Medical Granulocyte Center Count </content>0.01 KCUMM<content styleCode="Ital ics"> (0-0.1 KCUMM)</content > ID Date Data Source GFR(Creatinine).[id number] 06/09/2019 10:54:00 AM EDT [facility] 0-0400 Name Value Range Interpretation Code Description Data Val rce(s) Supporting Document(s ) UNK > 60 Below low normal <content [facility] styleCode="Bold"> Medical Cent er EGFR </content>60 GFR L<content styleCode="Italic s"> (> 60 GFR)</content> ID Date Data Source CHMROUTINECCDA.[id number] 06/09/2019 10:54:00 AM EDT [facility] -0400 Name Value Range Interpretation Description Data Sup porting Code Source(s) Document(s ) UNK 2.3-3.5 <content [facility] styleCode="Bold Medical ">Globulin Center </content>3.1 G/DL<content styleCode="Ital ics"> (2.3-3.5 G/DL)</content> Protein 6.3-8.2 <content [facility] [Mass/volum styleCode="Bold Medical e] in Serum ">Total Protein Center or Plasma </content>6.8 G/DL<content styleCode="Ital ics"> (6.3-8.2 G/DL)</content> UNK 4.2-5.8 Above high normal <content [facility] s styleCode="Bold Medical ">Hemoglobin Center A1C </content>6.0 % H<content styleCode="Ital ics"> (4.2-5.8 %)</content> UNK >= 1.0 <content [facility] styleCode="Bold Medical ">AG Ratio Center </content>1.2 <content styleCode="Ital ics"> (>= 1.0 )</content> ID Date Data Source [id number] 06/09/2019 10:54:00 AM EDT [facility] Center Name Value Range Interpretation Description Data Sup porting Code Source(s) Document(s ) Potassium 3.5-5.3 <content Saint [Moles/volume] in styleCode="Bold"> [facility] Serum or Plasma Potassium Medical </content>4.6 Center MEQ/L<content styleCode="Italic s"> (3.5-5.3 MEQ/L)</content> Sodium 137-145 <content Saint [Moles/volume] in styleCode="Bold"> [facility] Serum or Plasma Sodium Medical </content>143 Center MEQ/L<content styleCode="Italic s"> (137-145 MEQ/L)</content> Chloride 98-107 <content Saint [Moles/volume] in styleCode="Bold"> [facility] Serum or Plasma Chloride Medical </content>107 Center MEQ/L<content styleCode="Italic s"> (98-107 MEQ/L)</content> UNK 7-17 <content [facility] styleCode="Bold"> Amy BUN </content>15 Medical MG/DL<content Center styleCode="Italic s"> (7-17 MG/DL)</content> Carbon dioxide, 22-30 Above high <content Saint total normal styleCode="Bold"> Amy [Moles/volume] in Carbon Dioxide Medical Serum or Plasma </content>31 Center MEQ/L H<content styleCode="Italic s"> (22-30 MEQ/L)</content> Glucose 74-106 <content [facility] [Mass/volume] in styleCode="Bold"> [facility] Serum or Plasma Glucose Medical </content>96 Center MG/DL<content styleCode="Italic s"> (74-106 MG/DL)</content> Creatinine 0.5-1.3 <content [facility] [Mass/volume] in styleCode="Bold"> [facility] Serum or Plasma Creatinine Medical </content>1.0 Center MG/DL<content styleCode="Italic s"> (0.5-1.3 MG/DL)</content> UNK > 60 Below low <content [facility] normal styleCode="Bold"> Amy EGFR </content>60 Medical GFR L<content Center styleCode="Italic s"> (> 60 GFR)</content> Alanine 7-30 <content [facility] aminotransferase styleCode="Bold"> [facility] [Enzymatic Alanine Medical activity/volume] Aminotransferase Center in Serum or Plasma (ALT) </content>17 IU/L<content styleCode="Italic s"> (7-30 IU/L)</content> Aspartate 14-36 <content [facility] aminotransferase styleCode="Bold"> [facility] [Enzymatic Aspartate Medical activity/volume] Aminotransferase Center in Serum or Plasma (AST) </content>30 IU/L<content styleCode="Italic s"> (14-36 IU/L)</content> Calcium 8.4-10. <content [facility] [Mass/volume] in 2 styleCode="Bold"> [facility] Serum or Plasma Calcium Medical </content>9.5 Center MG/DL<content styleCode="Italic s"> (8.4-10.2 MG/DL)</content> Bilirubin.total 0.2-1.3 <content [facility] [Mass/volume] in styleCode="Bold"> [facility] Serum or Plasma Bilirubin Total Medical </content>0.6 Center MG/DL<content styleCode="Italic s"> (0.2-1.3 MG/DL)</content> Alkaline 38-126 <content [facility] phosphatase styleCode="Bold"> Amy [Enzymatic Alkaline Medical activity/volume] Phosphatase (ALP) Cente r in Serum or Plasma </content>75 IU/L<content styleCode="Italic s"> (38-126 IU/L)</content> Albumin 3.5-5.0 <content Saint [Mass/volume] in styleCode="Bold"> [facility] Serum or Plasma Albumin Medical </content>3.7 Center G/DL<content styleCode="Italic s"> (3.5-5.0 G/DL)</content> Procedure Social History Code Duration Value Status Description Data Source(s ) Caffeine Use 05/31/2020 completed NEXTGEN (Jose Alejandro nt Details 12:00:00 AM EDT [facility]) Smoking 05/31/2020 Unknown if completed Unknown if ever NEXTGEN ( Saint 12:00:00 AM EDT ever smoked smoked [facility]) Smoking 05/10/2020 Never Smoker completed Never Smoker eCW1 (Srinivasan t 12:00:00 AM EDT [facility]) Smoking 05/10/2020 Never Smoker completed Never Smoker eCW1 (Srinivasan t 12:00:00 AM T [facility]) Smoking 05/10/2020 Never Smoker completed Never Smoker eCW1 (Srinivasan t 12:00:00 AM EDT [facility]) Smoking 05/10/2020 Never Smoker completed Never Smoker eCW1 (Srinivasan t 12:00:00 AM EDT [facility]) Smoking 05/10/2020 Never Smoker completed Never Smoker eCW1 (Srinivasan t 12:00:00 AM EDT [facility]) Smoking 05/10/2020 Never Smoker completed Never Smoker eCW1 (Srinivasan t 12:00:00 AM EDT [facility]) Smoking 05/10/2020 Never Smoker completed Never Smoker eCW1 (Srinivasan t 12:00:00 AM EDT [facility]) Smoking 04/10/2020 Never Smoker completed Never Smoker eCW1 (Srinivasan t 12:00:00 AM [facility]) Caffeine Use 04/03/2020 completed NEXTGEN ([facility] Details 12:00:00 AM [facility]) Vital Signs ID Date Data Source UNK Name Value Range Interpretation Code Description Data Source(s) Oxygen saturation 100 % 100 % NEXTGEN ([facility] in Arterial blood [facility] by Pulse oximetry [place]) Body mass index 33.61 kg/m2 Overweight 33.61 kg/m2 NEXTGEN ([facility] (BMI) [Ratio] [facility]) Respiratory rate 20 /min 20 /min [facility] ([facility]) Body temperature 36.94 Nadiya 36.94 Nadiya [facility] ([facility]) Heart rate 61 /min 61 /min [facility] ([facility]) Diastolic blood 70 mm[Hg] 70 mm[Hg] [facility] ( [facility] pressure [facility]) Systolic blood 141 mm[Hg] 141 mm[Hg] [facility] Body weight 79.379 kg 79.379 kg NEXTGEN ([facility]) Body height 153.67 cm 153.67 cm [facility] ([facility]) Diastolic blood 48 mm[Hg] 48 mm[Hg] eCW1 ([facility] pressure [facility]) Systolic blood 130 mm[Hg] 130 mm[Hg] eCW1 ([facility]) Oxygen saturation 98 % 98 % eCW1 (S aint in Arterial blood [facility] by Pulse oximetry [facility]) Body temperature 97.9 [degF] 97.9 [degF] eCW1 ( [facility]) Respiratory rate 18 /min 18 /min eCW1 ([facility]) Heart rate 46 /min 46 /min eCW1 ([facility]) Body mass index 32.55 kg/m2 32.55 kg/m2 eCW1 (S aint (BMI) [Ratio] [facility]) Body weight 178 [lb_av] 178 [lb_av] eCW1 ([facility]) Body height [in_i] eCW1 ([facility]) Diastolic blood 90 mm[Hg] 90 mm[Hg] eCW1 (Jose Alej[facility] nt pressure [facility]) Systolic blood 180 mm[Hg] 180 mm[Hg] eCW1 (Srinivasan t pressure [facility]) Oxygen saturation 96 % 96 % eCW1 (S aint in Arterial blood [facility] by Pulse oximetry [facility]) Body temperature 97.8 [degF] 97.8 [degF] eCW1 ( [facility]) Respiratory rate 18 /min 18 /min eCW1 ( int [facility]) Heart rate 89 /min 89 /min eCW1 ([facility]) Body mass index 32.55 kg/m2 32.55 kg/m2 eCW1 (S aint (BMI) [Ratio] [facility] Body weight 178 [lb_av] 178 [lb_av] eCW1 ([facility]) Body height [in_i] eCW1 ([facility]) Heart rate 42 /min 42 /min NEXTGEN ([facility]) Diastolic blood 72 mm[Hg] 72 mm[Hg] NEXTGEN ( [facility]) Systolic blood 151 mm[Hg] 151 mm[Hg] NEXTGEN (S aint [facility]) Oxygen saturation 99 % 99 % NEXTGEN ([facility] in Arterial blood [facility] by Pulse oximetry Center) Body mass index 34.00 kg/m2 Overweight 34.00 kg/m2 NEXTGEN ([facility] (BMI) [Ratio] [facility]) Respiratory rate 18 /min 18 /min NEXTGEN ([facility]) Body temperature 36.72 Nadiya 36.72 Nadiya NEXTGEN ([facility]) Heart rate 49 /min 49 /min NEXTGEN ([facility]) Diastolic blood 69 mm[Hg] 69 mm[Hg] NEXTGEN ( [facility]) Systolic blood 170 mm[Hg] 170 mm[Hg] NEXTGEN (S aint pressure [facility]) Body weight 80.286 kg 80.286 kg [facility] Body height 153.67 cm 153.67 cm [facility]EXTGEN ([facility]) Diastolic blood 74 mm[Hg] 74 mm[Hg] eCW1 (Jose Alejandro nt pressure [facility]) Systolic blood 148 mm[Hg] 148 mm[Hg] eCW1 ([facility]) Oxygen saturation 99 % 99 % eCW1 (S aint in Arterial blood [facility] by Pulse oximetry [facility] ) Body temperature 98.2 [degF] 98.2 [degF] eCW1 ( [facility]) Respiratory rate 18 /min 18 /min eCW1 ([facility]) Heart rate 43 /min 43 /min eCW1 ([facility]) Body mass index 34.38 kg/m2 34.38 kg/m2 eCW1 (S aint (BMI) [Ratio] [facility]) Body weight 188 [lb_av] 188 [lb_av] eCW1 ([facility]) Body height [in_i] eCW1 ([facility]) Diastolic blood 82 mm[Hg] 82 mm[Hg] NEXTGEN ( [facility]) Systolic blood 142 mm[Hg] 142 mm[Hg] NEXTGEN (S aint [facility]) Oxygen saturation 97 % 97 % NEXTGEN (Saint in Arterial blood [facility] by Pulse oximetry Center) Body mass index 34.34 kg/m2 Overweight 34.34 kg/m2 NEXTGEN ([facility] (BMI) [Ratio] [facility]) Respiratory rate 20 /min 20 /min NEXTGEN ([facility]) Body temperature 36.72 Nadiya 36.72 Nadiya NEXTGEN ([facility]) Heart rate 69 /min 69 /min NEXTGEN ([facility]) Diastolic blood 76 mm[Hg] 76 mm[Hg] NEXTGEN ( [facility]) Systolic blood 151 mm[Hg] 151 mm[Hg] NEXTGEN ([facility]) Body weight 81.102 kg 81.102 kg NEXTGEN ([facility]) Body height 153.67 cm 153.67 [facility] ([facility]) Oxygen saturation 96 % 96 % NEXTGEN ([facility] in Arterial blood [facility] by Pulse oximetry Center) Body mass index 33.92 kg/m2 Overweight 33.92 kg/m2 NEXTGEN ([facility] (BMI) [Ratio] [facility]) Respiratory rate 20 /min 20 /min NEXTGEN ([facility]) Body temperature 36.11 Nadiya 36.11 Nadiya NEXTGEN ([facility]) Heart rate 50 /min 50 /min [facility]) Body weight 80.104 kg 80.104 kg [facility] ([facility]) Body height 153.67 cm 153.67 cm [facility] ([facility]) Oxygen saturation 99 % 99 % NEXTGEN ([facility] in Arterial blood [facility] by Pulse oximetry Center) Body mass index 33.42 kg/m2 Overweight 33.42 kg/m2 NEXTGEN ([facility] (BMI) [Ratio] [facility]) Respiratory rate 18 /min 18 /min NEXTGEN ([facility]) Body temperature 36.61 Nadiya 36.61 Nadiya [facility]) Heart rate 69 /min 69 /min [facility] ([facility]) Diastolic blood 71 mm[Hg] 71 mm[Hg] NEXTGEN ( [facility]) Systolic blood 143 mm[Hg] 143 mm[Hg] NEXTGEN ([facility]) Body weight 78.925 kg 78.925 kg NEXTGEN ([facility]) Body height 153.67 cm [facility].67 [facility] ([facility]) Oxygen saturation 97 % 97 % NEXTGEN ([facility] in Arterial [facility] by Pulse oximetry Center) Body mass index 35.34 kg/m2 Overweight 35.34 kg/m2 NEXTGEN ([facility] (BMI) [Ratio] [facility]) Respiratory rate 18 /min 18 /min [facility] ([facility]) Body temperature 36.83 Nadiya 36.83 Nadiya NEXTGEN ([facility]) Heart rate 62 /min 62 /min [facility] ([facility]) Diastolic blood 63 mm[Hg] 63 mm[Hg] [facility] pressure [facility]) Systolic blood 130 mm[Hg] 130 mm[Hg] [facility] (S aint pressure [facility]) Body weight 83.461 kg 83.461 kg [facility] ([facility]) Body height 153.67 cm 153.67 cm [facility] ([facility]) Patient Treatment Plan of Care Planned Activity Planned Date Details Description Data Source (s) Ibuprofen 200 MG Oral Capsule 05/31/2020 NEXTGEN (Saint 12:00:00 AM [facility]) Cyclobenzaprine hydrochloride 05/31/2020 NEXTGEN (Saint 5 MG Oral Tablet 12:00:00 AM [facility]) Amlodipine 5 MG / Benazepril 05/31/2020 NEXTGEN (Saint hydrochloride 20 MG Oral 12:00:00 AM [facility]) POLYETHYLENE GLYCOL 3350 105 04/10/2020 eCW1 (Saint Amy MG/ML / Potassium Chloride 12:00:00 AM [facility] 0.64018 MEQ/ML / Sodium PC) Bicarbonate 0.017 MEQ/ML / Sodium Chloride 0.0479 MEQ/ML Oral Solution [NuLytely] Hydrochlorothiazide 25 MG 04/03/2020 NE XTGEN (Saint Oral Tablet 12:00:00 AM [facility]) atorvastatin 20 MG Oral 04/03/2020 NEXT GEN (Saint Tablet 12:00:00 AM [facility]) Aspirin 81 MG Delayed Release 04/03/2020 NEXTGEN (Saint Oral Tablet 12:00:00 AM [facility]) Centrum Silver Women 8 mg 03/06/2020 NE XTGEN (Saint iron-400 mcg-300 mcg tablet 12:00:00 AM [facility]) Hydrochlorothiazide 25 MG 03/06/2020 NE XTGEN (Saint Oral Tablet 12:00:00 AM [facility]) Hydrochlorothiazide 25 MG 10/25/2019 NE XTGEN (Saint Oral Tablet 12:00:00 AM [facility]) Shingrix (PF) 50 mcg/0.5 mL 06/09/2019 NEXTGEN (Saint intramuscular suspension, kit 12:00:00 AM [facility]) atorvastatin 10 MG Oral 04/25/2019 NEXT GEN (Saint Tablet 12:00:00 AM [facility]) Amoxicillin 875 MG / 04/15/2019 NEXTGEN (Saint Clavulanate 125 MG Oral 12:00:00 AM [facility] Medical Tablet [Augmentin] [place]) Hydrochlorothiazide 25 MG 03/14/2019 NE XTGEN (Saint Oral Tablet 12:00:00 AM [facility]) Aspirin 81 MG Chewable Tablet 06/17/2018 NEXTGEN (Saint 12:00:00 AM [facility]) atorvastatin 10 MG Oral 06/17/2018 NEXT GEN (Saint Tablet 12:00:00 AM [facility])
[2020-06-19 14:08] LABS: BASO % 1.1 % (0-2.0); HEMATOCRIT 39.2 % (32.4-45.2); HEMOGLOBIN 12.9 GM/dl (10.7-15.3); LYMPH % 24.6 % (8-40); MCH 31.5 pg (25.7-33.7); MCHC 32.9 g/dl (32.0-36.0); MEAN CELL VOLUME 95.6 fl (80-96); MEAN PLT VOLUME 10.7 fl (7.5-11.1); MONO % 6.5 % (3.8-10.2); NEUT % 66.8 % (42.8-82.8); PLATELET COUNT 164 K/MM3 (134-434); RDW 13.7 % (11.6-15.6); WHITE BLOOD COUNT 5.6 K/mm3 (4.0-10.8)
[2020-06-19 14:12] LABS: ACTIVATED PTT 30.7 SECONDS (25.2-36.5)
[2020-06-19 14:16] LABS: INR 1.14 (0.82-1.09); PROTHROMBIN TIME (PATIENT) 12.7 SEC (10.2-13.0)
[2020-06-19 14:17] LABS: ALBUMIN 4.4 g/dl (3.4-5.0); BILIRUBIN,TOTAL 0.9 mg/dl (0.2-1); CALCIUM 9.6 mg/dl (8.5-10); POTASSIUM 3.6 mmol/L (3.5-5.1); TOT PROT 7.6 g/dl (6.4-8.2)
[2020-06-19] MEDS ORDERED: ONDANSETRON 4 MG/2 ML VIAL ONE (14:18)
[2020-06-19] MEDS ORDERED: MECLIZINE HCL 25 MG TABLET (FP) PO ONE (15:03)
[2020-06-19] MEDS ORDERED: MECLIZINE HCL 25 MG TABLET (FP) ONE (15:19)
--- NOTE | 2020-06-19 15:25 | HP ---
CHIEF COMPLAINT: Lightheadedness PCP: Dr. Marquez HISTORY OF PRESENT ILLNESS: 64 year-old female with a PMH significant for HTN, HLD, presented to the ED complaining of episodes of lightheadedness x 3 days. The episodes are worse with change in position, and are associated with nausea and vomiting. It is also associated with left shoulder pain. Patient deneis chest pain, SOB, WONG, palpitations, lower extremity edema. ER course was notable for: (1) troponin neg x 1 (2) (3) Recent Travel: No PAST MEDICAL HISTORY: Hypertension Hyperlipidemia PAST SURGICAL HISTORY: None reported Social History: works as a cook in a school Smoking: never Alcohol: no Drugs: no Family history: reviewed and non-contributory Allergies No Known Allergies Allergy (Verified 05/20/13 20:07) HOME MEDICATIONS: Home Medications Medication Instructions Recorded Alprazolam [Xanax] 0.25 mg PO BID PRN #10 tablet 05/20/13 Unobtainable Home Med List 0 dose .ROUTE UTDICT 05/20/13 REVIEW OF SYSTEMS CONSTITUTIONAL: Absent: fever, chills, diaphoresis, generalized weakness, malaise, loss of appetite, weight change HEENT: Absent: rhinorrhea, nasal congestion, throat pain, throat swelling, difficulty swallowing, mouth swelling, ear pain, eye pain, visual changes CARDIOVASCULAR: +lightheadedness, left shoulder pain, nausea, vomiting Absent: chest pain, syncope, palpitations, irregular heart rate, lightheadedness, peripheral edema RESPIRATORY: Absent: cough, shortness of breath, dyspnea with exertion, orthopnea, wheezing, stridor, hemoptysis GASTROINTESTINAL: Absent: abdominal pain, abdominal distension, nausea, vomiting, diarrhea, constipation, melena, hematochezia GENITOURINARY: Absent: dysuria, frequency, urgency, hesitancy, hematuria, flank pain, genital pain MUSCULOSKELETAL: Absent: myalgia, arthralgia, joint swelling, back pain, neck pain SKIN: Absent: rash, itching, pallor HEMATOLOGIC/IMMUNOLOGIC: Absent: easy bleeding, easy bruising, lymphadenopathy, frequent infections ENDOCRINE: Absent: unexplained weight gain, unexplained weight loss, heat intolerance, cold intolerance NEUROLOGIC: Absent: headache, focal weakness or paresthesias, dizziness, unsteady gait, seizure, mental status changes, bladder or bowel incontinence PSYCHIATRIC: Absent: anxiety, depression, suicidal or homicidal ideation, hallucinations. PHYSICAL EXAMINATION Vital Signs - 24 hr 06/19/20 06/19/20 13:08 13:30 Temperature 99 F Pulse Rate 65 Pulse Rate [ 63 Apical] Respiratory 18 18 Rate Blood Pressure 186/84 H Blood Pressure 170/73 [Left Arm] O2 Sat by Pulse 100 100 Oximetry (%) GENERAL: Awake, alert, and fully oriented, in no acute distress. HEAD: Normal with no signs of trauma. EYES: Pupils equal, round and reactive to light, extraocular movements intact, sclera anicteric, conjunctiva clear. No lid lag. EARS, NOSE, THROAT: Ears normal, nares patent, oropharynx clear without exudates. Moist mucous membranes. NECK: Normal range of motion, supple without lymphadenopathy, JVD, or masses. LUNGS: Breath sounds equal, clear to auscultation bilaterally. No wheezes, and no crackles. No accessory muscle use. HEART: Regular rate and rhythm, normal S1 and S2 without murmur, rub or gallop. ABDOMEN: Soft, nontender, not distended, normoactive bowel sounds, no guarding, no rebound, no masses. No hepatomegaly or splenomegaly. MUSCULOSKELETAL: Normal range of motion at all joints. No bony deformities or tenderness. No CVA tenderness. UPPER EXTREMITIES: 2+ pulses, warm, well-perfused. No cyanosis. No clubbing. No peripheral edema. LOWER EXTREMITIES: 2+ pulses, warm, well-perfused. No calf tenderness. No peripheral edema. NEUROLOGICAL: Cranial nerves II-XII intact. Normal speech. Normal gait. PSYCHIATRIC: Cooperative. Good eye contact. Appropriate mood and affect. SKIN: Warm, dry, normal turgor, no rashes or lesions noted, normal capillary refill. Laboratory Results - last 24 hr 06/19/20 06/19/20 06/19/20 13:45 13:45 13:45 WBC 5.6 RBC 4.10 Hgb 12.9 Hct 39.2 MCV 95.6 MCH 31.5 MCHC 32.9 RDW 13.7 Plt Count 164 MPV 10.7 Absolute Neuts (auto) 3.6 Neutrophils % 66.8 Lymphocytes % 24.6 Monocytes % 6.5 Eosinophils % 1.0 Basophils % 1.1 PT with INR INR PTT (Actin FS) Sodium 140 Potassium 3.6 Chloride 107 Carbon Dioxide 26 Anion Gap 7 L BUN 12.0 Creatinine 1.0 Est GFR (CKD-EPI)AfAm 68.95 Est GFR (CKD-EPI)NonAf 59.49 Random Glucose 108 H Calcium 9.6 Total Bilirubin 0.9 AST 23 ALT 14 Alkaline Phosphatase 85 Troponin I < 0.03 Total Protein 7.6 Albumin 4.4 06/19/20 13:45 WBC RBC Hgb Hct MCV MCH MCHC RDW Plt Count MPV Absolute Neuts (auto) Neutrophils % Lymphocytes % Monocytes % Eosinophils % Basophils % PT with INR 12.7 INR 1.14 PTT (Actin FS) 30.7 Sodium Potassium Chloride Carbon Dioxide Anion Gap BUN Creatinine Est GFR (CKD-EPI)AfAm Est GFR (CKD-EPI)NonAf Random Glucose Calcium Total Bilirubin AST ALT Alkaline Phosphatase Troponin I Total Protein Albumin ASSESSMENT/PLAN: 64 year-old female with a PMH significant for HTN, HLD, admitted for pre syncope. Pre syncope --initial troponin negative; second troponin was reported as 0.27, however, this reported value has been canceled by [facility] due to a problem with the analyzer; the third troponin was negative --Yeison Aiken, Fabrizio aware of the incorrect troponin value --ECG: sinus rhythm with frequent PVCs, prolonged QT interval --US carotids: no significant stenosis --Echo: LV normal, EF 58%; RV normal; mild TR --telemetry monitoring Hypertension --continue amlodipine, lisnopril Hyperlipidemia --continue Lipitor Family Medical History Family History: As Documented Visit type - Emergency Visit Emergency Visit: Yes ED Registration Date: 06/20/20 Care time: The patient presented to the Emergency Department on the above date and was hospitalized for further evaluation of their emergent condition. - New Patient This patient is new to me today: Yes Date on this admission: 06/20/20 - Critical Care Critical Care patient: No
--- NOTE | 2020-06-19 18:07 | CON.CARD ---
Consult Consult Specialty:: cardiology Reason for Consultation:: pre-syncope - History of Present Illness Chief Complaint: Pt A&Ox3; no chest pain or dyspnea. History of Present Illness: Ms. Xie is a 64 yr old woman (b. [place]), with past medical history of hypertension, high cholesterol, obesity, post-menopausal, anxiety, who now presents to the emergency department with 3-day history of lightheadedness, worse with change in position associated with nausea and vomiting (2-3 episodes nonbilious non-bloody). Mild left upper quadrant pain. No headache. Denies chest pain shortness of breath but does endorse some left- sided shoulder discomfort. Symptoms are worse with standing alleviated by rest. Patient is a cook in a kitchen. Family hx CAD: sister had ME age 60 Pt works as a cook in a school; on her feet most of the work-day, often walking short distances. - History Source History Provided By: Patient, Medical Record Limitations to Obtaining History: No Limitations - Past Medical History Reproductive: Yes: Postmenopausal ...: No Heme/Onc: No: Anemia - Smoking History Smoking history: Never smoked Have you smoked in the past 12 months: No Aproximately how many cigarettes per day: 0 Home Medications - Allergies Allergies/Adverse Reactions: Allergies Allergy/AdvReac Type Severity Reaction Status Date / Time No Known Allergies Allergy Verified 05/20/13 20:07 - Home Medications Home Medications: Ambulatory Orders Amlodipine Besylate/Benazepril [Amlodipine-Benazepril 5-20 mg] 1 each PO DAILY 06/19/20 Atorvastatin Ca [Lipitor] 20 mg PO HS 06/19/20 Cyclobenzaprine HCl 5 mg PO DAILY 06/19/20 Ibuprofen 200 mg PO BID 06/19/20 Family Medical History Family History: Denies Review of Systems - Review of Systems Constitutional: reports: No Symptoms Eyes: reports: No Symptoms HENT: reports: No Symptoms Neck: reports: No Symptoms Cardiovascular: reports: Other (left shoulder pain) Respiratory: reports: SOB Gastrointestinal: reports: Nausea, Vomiting Genitourinary: reports: No Symptoms Breasts: reports: No Symptoms Reported, Lumps Musculoskeletal: reports: No Symptoms Integumentary: reports: No Symptoms Neurological: reports: No Symptoms Endocrine: reports: No Symptoms Hematology/Lymphatic: reports: No Symptoms Psychiatric: reports: Anxiety - Risk Factors Known Risk Factors: Yes: Age, Hypercholesterolemia, Hypertension Vital Signs: Vital Signs Temperature 98 F 06/19/20 17:40 Pulse Rate 63 06/19/20 17:40 Respiratory Rate 18 06/19/20 17:40 Blood Pressure 131/89 06/19/20 17:40 O2 Sat by Pulse Oximetry (%) 100 06/19/20 17:40 Constitutional: Yes: Anxious Eyes: Yes: WNL HENT: Yes: WNL Neck: Yes: WNL Respiratory: Yes: WNL Gastrointestinal: Yes: Soft. No: Tenderness Renal/: No: Anuria Cardiovascular: Yes: Regular Rate and Rhythm JVD: No Carotid Bruit: No Heart Sounds: Yes: S1, S2, S4 Murmur: Yes: Systolic Murmur, Grade 1 Musculoskeletal: Yes: WNL Extremities: Yes: WNL Edema: No Peripheral Pulses WNL: Yes Integumentary: Yes: WNL Neurological: Yes: WNL ...Motor Strength: WNL Psychiatric: Yes: WNL - Other Data Labs, Other Data: CBC, BMP 06/19/20 13:45 06/19/20 13:45 INR, PTT INR 1.14 (0.82-1.09) 06/19/20 13:45 Troponin, BNP 06/19/20 13:45 Troponin I < 0.03 Troponin, BNP 06/19/20 13:45 Troponin I < 0.03 Abnormal Lab Results 06/20/20 18:00 PTT (Actin FS) 52.2 H Imaging - Results Chest X-ray: Image Reviewed EKG: Image Reviewed Assessment/Plan Pre-syncope Left shoulder pain HTN hyperlipidemia obesity family hx ME Periods of ventricular bigeminy Rec: Initial TNI< 0.02; f/u serially Orthostatic vital signs Carotid artery doppler f/u lipid profile, TSH. EKG: sinus bradycardia; periods of ventricular bigeminy on telemetry. ECHO for LVEF, valve status. Stress treadmill MIBI if TNI remains normal.
--- OUTSIDE RECORDS SUMMARY | 2020-06-19 18:25 | XMS ---
:1955 Author Organization [facility] Care Team Providers Name Role Phone [...] Unavailable Reeves, C Unavailable Unavailable Dallin Unavailable [phone] Mares Unavailable Unavailable Mares Unavailable Unavailable Mares [...] Unavailable Brain, Mallorie ROSA Unavailable Unavailable Brain, Mlalorie ROSA Unavailable Unavailable Brain, Mallorie ROSA Unavailable Unavailable Brain, Mallorie ROSA Unavailable Unavailable Brain, Mallorie MD Unavailable Unavailable Brain, Mallorie MD Unavailable Unavailable Brain, Mallorie MD Unavailable Unavailable Brain, Mallorie ROSA Unavailable Unavailable Brain, Mallorie ROAS Unavailable Unavailable Brain, Mallorie ROSA Unavailable Unavailable Brain, Mallorie ROSA Unavailable Unavailable Brain, Mallorie ROSA Unavailable Unavailable Brain, Mallorie ROSA Unavailable Unavailable Brain, Mallorie ROSA Unavailable Unavailable Brain, Mallorie ROSA Unavailable Unavailable Hematite, M Unavailable [phone] Hematite, M Unavailable [phone] Hematite, M Unavailable [phone] BETH GARCIA Unavailable Unavailable ZUNASSIGNED Unavailable Unavailable [...] is protected by Article 27-F of the [facility] Public Health law. If you continue you may haveaccess to information: Regarding HIV / AIDS; Provided by facilities licensed or operated by the [facility] Office of Mental Health; or Provided by the [facility] Office for People With Developmental Disabilities. If such information is present, then the following [facility] mandated warning applies: This information has [...] law may result in a fine or care home sentence or both. A general authorization for the release of medical or other information is NOT sufficient authorization for further disclosure. Family History Family Member Family Member Family Member Date of Description Data Source(s) Name Gender Status Status Unknown Female Problem 03/13/2016 STEPHANIE ([facility] (reading hospital) 12:00:[address] [facility] EDT Center) Encounters Encounter Providers Location Date Indications Data Source(s ) Outpatient Attender: Jeanne Aguilar 05/31/2020 [facility] Saroj ephs VelezAdmitter: 11:23:00 Medical nter Jeanne EDT VelezReferrer: Jeanne Mares OutpatientOFFICE/ Attender: [facility] 05/31/2020 STEPHANIE ([facility] OUTPATIENT VISIT, [facility] 11:23:00 [facility] EDT - Center) 05/31/2020 11:23:00 AM EDT Outpatient Attender: 05/31/2020 [facility] Amy ZUNASSIGNEDAdmitt 10:42:00 Medical Center er: AM EDT ZUNASSIGNEDReferr er: [id number] ZUNASSIGNED@, Outpatient Admitter: [id number] 05/31/2020 [facility] ZUNASSIGNED@,Refe 12:00:00 Medical Center rrer: [id number] AM EDT ZUNASSIGNED@, Outpatient Attender: 05/30/2020 [facility] Amy ZUNASSIGNEDAdmitt 10:14:00 [facility] Center er: AM EDT ZUNASSIGNEDReferr er: [id number] ZUNASSIGNED@, Outpatient Admitter: [id number] 05/30/2020 [facility] ZUNASSIGNED@,Refe 12:00:00 Medical Center rrer: [id number] AM EDT ZUNASSIGNED@, (TEL) [address] 05/17/2020 eCW1 ([facility] 12:00:00 Amy Medic al AM EDT Practice PC) (TEL) [address] 05/16/2020 eCW1 ([facility] 12:00:00 Amy Medic al AM EDT Practice PC) (TEL) [address] 05/16/2020 eCW1 ([facility] 12:00:00 Amy Medic al AM EDT Practice PC) Outpatient Attender: CHRISTEL Aguilar 05/15/2020 [facility] CHRISTEL 09:53:00 Medical Cent er MARTINAdmitter: AM EDT CHRISTEL GARCIAReferrer: CHRISTEL GARCIA Attender: [facility] 05/15/2020 [facility] N ([facility] 09:53:00 Amy Medic al AM EDT - Center) 05/15/2020 09:53:00 AM EDT (TEL) [address] 05/15/2020 eCW1 ([facility] 12:00:00 Amy Medic al AM EDT Practice PC) (TEL) [address] 05/15/2020 eCW1 ([facility] 12:00:00 Amy Medic al AM EDT Practice PC) Outpatient 05/10/2020 [facility] 03:15:00 Medical Center PM EDT Outpatient 05/10/2020 [facility] 03:11:00 Medical Center PM EDT Outpatient Attender: CHRISTEL Aguilar 05/10/2020 [facility] 08:31:00 Medical Cent er MARTINAdmitter: AM EDT CHRISTEL GARCIAReferrer: CHRISTEL GARCIA Attender: Charles 05/10/2020 [facility] ( [facility] 08:31:00 Amy Medic al AM EDT - Center) 05/10/2020 08:31:00 AM EDT Outpatient 05/10/2020 [facility] 12:00:00 Medical Center AM EDT Outpatient [address] 05/10/2020 eCW1 ([facility] 12:00:00 Amy Medic al AM EDT Practice PC) Attender: [facility] 05/09/2020 [facility] ([facility] 09:55:00 Amy Medica l AM EDT - Center) 05/09/2020 09:55:00 AM EDT Outpatient 04/26/2020 [facility] 04:00:00 Medical Center PM EDT Outpatient Attender: CHRISTEL Aguilar 04/26/2020 [facility] CHRISTEL 01:47:00 Medical Cent er RADHAAdmitter: PM EDT CHRISTEL KEARNEY RADHAReferrer: CHRISTEL KEARNEY MARTIN Attender: Charles 04/26/2020 [facility]EXTGEN ( [facility] Dallin 01:47:00 Amy Medic al PM EDT - Center) 04/26/2020 01:47:00 PM EDT Outpatient [address] 04/26/2020 eCW1 ([facility] 12:00:00 Amy Medic al AM EDT Practice PC) Outpatient 04/26/2020 [facility] 12:00:00 Medical Center AM EDT Outpatient Attender: Jeanne Aguilar 04/24/2020 [facility] Saroj yash MaresAdmitter: 05:23:00 Medical Ce nter Jeanne PM EDT VelezReferrer: Jeanne Mares OutpatientOFFICE/ Attender: [facility] 05:23:00 Amy Medical EST PM EDT - Center) 04/24/2020 05:23:00 PM EDT Outpatient Attender: BERE Aguilar 04/23/2020 [facility] 01:03:00 Medical Felipe BLACKBURN PM EDT MAdmitter: BERE BLACKBURN MReferrer: BERE Brand Outpatient Attender: BERE Aguilar 04/23/2020 [facility] 08:20:00 Jose Guadalupe BLACKBURN AM EDT MAdmitter: BERE BLACKBURN MReferrer: BERE Brand Attender: Bere 04/23/2020 STEPHANIE ([facility] 08:20:00 Amy Medic al AM EDT - Center) 04/23/2020 08:20:00 AM EDT Outpatient Attender: BLUE Aguilar 04/18/2020 [facility] MCARTHUR 07:14:00 Medical C enter LAdmitter: BLUE AM EDT LUZ MCARTHUR LReferrer: BLUE Muñoz Outpatient [address] 04/10/2020 eCW1 ([facility] 12:00:00 Amy Medic al AM EDT Practice PC) Outpatient 04/03/2020 [facility] 03:06:00 Medical Center PM EDT Outpatient Attender: Jeanne Aguilar 04/03/2020 [facility] VelezAdmitter: 01:26:00 Medical Ce nter Jeanne PM EDT VelezReferrer: Jeanne Mares OutpatientOFFICE/ Attender: [facility] 04/03/2020 N EXTGEN ([facility] OUTPATIENT VISIT, [facility] 01:26:00 Amy Medical EST PM EDT - Center) 04/03/2020 01:26:00 PM EDT Outpatient 04/03/2020 [facility] 12:00:00 Medical Center AM EDT Attender: [facility] 04/02/2020 NEXTGEN ([facility] 10:21:00 Amy Medica l AM EDT - Center) 04/02/2020 10:21:00 AM EDT Outpatient 03/06/2020 [facility] 02:18:00 Medical Center PM EDT Outpatient Attender: Jeanne Aguilar 03/06/2020 [facility] VelezAdmitter: 01:33:00 Medical Ce nter Jeanne PM EDT VelezReferrer: Jeanne Mares OutpatientOFFICE/ Attender: [facility] 03/06/2020 N EXTGEN ([facility] OUTPATIENT VISIT, [facility] 01:33:00 Amy Medical EST PM EDT - Center) 03/06/2020 01:33:00 PM EDT Outpatient 03/06/2020 [facility] 12:00:00 Medical Center AM EDT Attender: [facility] 03/02/2020 NEXTGEN ([facility] 09:54:00 Amy Medica l AM EDT - Center) 03/02/2020 09:54:00 AM EDT Attender: [facility] 01/17/2020 [facility] 11:53:00 Amy Medical AM EDT - Center) 01/17/2020 11:53:00 AM EDT Attender: [facility] 12/21/2019 BARRY N ([facility] 02:38:00 Amy Medic al PM EDT - Center) 12/21/2019 02:38:00 PM EDT Attender: [facility] 11/16/2019 [facility] N ([facility] 04:17:00 Amy Medic al PM EDT - Center) 11/16/2019 04:17:00 [facility] N ([facility] Brain ROSA [place] 02:56:00 Amy Medica l PM EST - Center) 10/31/2019 02:56:00 PM EST Outpatient 10/25/2019 [facility] 04:21:00 Medical [place] PM EST Outpatient Attender: Tarah Aguilar 10/25/2019 [facility] AszalosAdmitter: 09:04:00 [facility] AM EST AszalosReferrer: Tarah Cassidy OutpatientOFFICE/ Attender: [facility] 10/25/2019 STEPHANIE ([facility] OUTPATIENT VISIT, [facility] 09:04:00 Sudheer s Medical EST AM EST - Center) 10/25/2019 09:04:00 AM EST Outpatient 10/25/2019 [facility] 12:00:00 Medical [place] AM EST Outpatient 06/09/2019 [facility] 11:32:00 Medical [place] AM EDT Outpatient Attender: Tarah Aguilar 06/09/2019 [facility] Saroj lewis AszalosAdmitter: 08:58:00 [facility] AM EDT AszalosReferrer: Tarah Cassidy OutpatientOFFICE/ Attender: [facility] 06/09/2019 Olivier AUGUST ([facility] 08:58[facility] Amy Medical EST AM EDT - Center) 06/09/2019 08:58:00 AM EDT Outpatient 06/09/2019 [facility] 12:00:00 Medical [place] AM EDT Attender: [facility] 06/07/2019 STEPHANIE [facility] Amy Medica l AM EDT - Center) 06/07/2019 09:18:00 AM EDT [facility] 05/05/2019 BARR[place] N ([facility] Brain ROSA [place] 11:09:00 Amy Medica l AM EDT - Center) 05/05/2019 11:09:00 AM EDT Attender: [facility] 04/25/2019 BARRY Aguayo ([facility] 03:53:00 Amy Medica l PM EDT - Center) 04/25/2019 03:53:00 PM EDT Immunizations Vaccine Date Status Description Data Source(s) New in 2012. IIV4 05/31/2020 completed Influenza, Injectable, NEXTGEN ([facility] 12:00:00 AM EDT Quadrivalent [facility] Center) Source: New Immunization Record Medications Medication Brand Start Product Dose Route Administrative Pharmacy [facility] Indications Reaction Description Data Name Date [...] Packs EDT Practice Chloride 420 GM PC) 0.36916 MEQ/ML / Sodium Bicarbonate 0.017 MEQ/ML / [...] Arroyo hs iron-400 folic/ 00 AM prescribed Nv dical mcg-300 mcg lutein EDT Center ) [...] TAB EVERY DA Y Medical IN THE [place]) EVENING Amoxicillin 875 Augmentin 875 04/15/2019 completed Amoxicillin NEXTGEN MG / Clavulanate mg-125 mg tablet 12:00:00 AM 875 MG / (Saint 125 MG Oral EDT Clavulanate J osephs Tablet 125 MG Oral Medica l [Augmentin] Tablet [place] ) Augmentin 875 [Augmentin] mg-125 mg tablet Hydrochlorothiazi hydrochlorothiazi 03/14/2019 1 ORAL com pleted take 1 NEXTGEN de 25 MG Oral de 25 mg tablet 12:00:00 AM . tablet by ( Tablet EDT 0 oral route Amy hydrochlorothiazi 0 every d ay Medical de 25 mg tablet { [facility]) t b l } atorvastatin 10 atorvastatin 10 06/17/2018 1 ORAL complet ed take 1 NEXTGEN MG Oral Tablet mg tablet 12:00:00 AM . tablet by ( atorvastatin [address] Amy mg tablet 0 every day Medic al { [place]) t b l } Aspirin 81 MG aspirin 81 mg 06/17/2018 completed chew 1 NEXTGEN Chewable Tablet chewable tablet 12:00:00 AM tablet ( aspirin 81 mg EDT (81MG) by Amy chewable tablet oral rout e Medical every day [place]) Insurance Providers Payer name Policy type Policy ID Covered Covered democrat's Policy P shanita / Coverage democrat ID relationship to [place] [facility] ormation type clark [facility] [id number] 200 HEALTH NON CAP SELF PAY SP INSURANCE [facility] [id number] [id number] [facility] [id number] 01 [id number] [place] [id number] 01 [id number] 200 [employer] MMERCIAL W [id number] 200 Problems, Conditions, and Diagnoses Code Display Name Description Problem Type Effective Data Dates Source(s) I10 [id number] Essential Problem 04/26/2020 eCW1 ([facility] hypertension 12:00:00 AM [facility]) Z23 Encounter for ENCOUNTER FOR Diagnosis 05/31/2020 [facility] immunization IMMUNIZATION 11:23:00 AM [facility] M43.6 Torticollis TORTICOLLIS Diagnosis 05/31/2020 [facility] 11:23:00 AM [facility] R94.31 Abnormal ABNORMAL Diagnosis 05/15/2020 [facility] electrocardiogram ELECTROCARDIOGRAM 09:53:00 AM [facility] [ECG] [EKG] (ECG) (EKG) [facility] R00.1 Bradycardia, BRADYCARDIA, Diagnosis 05/10/2020 [facility] unspecified UNSPECIFIED 08:31:00 AM [facility] I10 Essential (primary) ESSENTIAL (PRIMARY) Diagnosis 020 [facility] hypertension HYPERTENSION 08:31:00 AM [facility] E78.5 Hyperlipidemia, HYPERLIPIDEMIA, Diagnosis 04/03/2020 Srinivasan t unspecified UNSPECIFIED 01:26:00 PM [facility] R73.03 Prediabetes PREDIABETES Diagnosis 04/03/2020 [facility] 01:26:00 PM [facility] Z71.89 Other specified OTHER SPECIFIED Diagnosis 03/06/2020 Srinivasan t counseling COUNSELING 01:33:00 PM [facility] Z71.3 Dietary counseling DIETARY COUNSELING Diagnosis 0 [facility] and surveillance [facility]ILL[facility] M21.249 Flexion deformity, FLEXION DEFORMITY, Diagnosis 0 [facility] unspecified finger UNSPECIFIED FINGER 01:33:00 PM [facility] joints JOINTS [facility] Z12.11 Encounter for ENCOUNTER FOR Diagnosis 03/06/2020 [facility] screening for SCREENING FOR 01:33:00 PM [facility] malignant neoplasm of MALIGNANT NEOPLASM [facility] colon OF COLON Center Z71.9 Counseling, COUNSELING, Diagnosis 10/25/2019 unspecified UNSPECIFIED 09:04:00 AM [facility] N63.10 Unspecified lump in UNSPECIFIED LUMP IN Diagnosis 020 [facility] the right breast, THE RIGHT BREAST, 09:04:00 AM [facility] unspecified quadrant UNSPECIFIED [facility] Z12.31 Encounter for ENCNTR SCREEN Diagnosis 10/25/2019 [facility] screening mammogram MAMMOGRAM FOR 09:04:00 AM J osephs for malignant MALIGNANT NEOPLASM EST Med ical neoplasm of breast OF BREAST Center M25.512 Pain in left shoulder PAIN IN LEFT Diagnosis 10/25/2019 S aint SHOULDER 09:04:00 AM [facility] E66.9 Obesity, unspecified OBESITY, UNSPECIFIED Diagnosis 06/09 [facility] 08:58:00 AM [facility] Z00.00 Encounter for general ENCNTR FOR GENERAL Diagnosis 2018 [facility] adult medical ADULT MEDICAL EXAM 08:58:00 AM [facility]uma sephs examination without W/O ABNORMAL EDT Med ical abnormal findings FINDINGS Center Surgeries/Procedures Procedure Description Date Indications Data Source(s) Influenza, Injectable, 3 05/31/2020 NEX TGEN ([facility] Yrs Or Older 12:00:00 AM EDT [facility] - 05/31/2020 [place]) 12:00:00 AM EDT Immunization 05/31/2020 NEXTGEN ([facility] Administration 12:00:00 AM EDT [facility] dical - 05/31/2020 [place]) 12:00:00 AM EDT OFFICE/OUTPATIENT VISIT, 05/31/2020 NEX TGEN ([facility] [place]) 12:00:00 AM EDT OFFICE/OUTPATIENT VISIT, 04/24/2020 NEX TGEN ([facility] EST 12:00:00 AM EDT [facility] - 04/24/2020 [place]) 12:00:00 AM EDT OFFICE/OUTPATIENT VISIT, 04/03/2020 NEX TGEN ([facility] EST 12:00:00 AM EDT [facility] 04/03/2020 [place]) 12:00:00 AM EDT OFFICE/OUTPATIENT VISIT, 03/06/2020 NEX TGEN ([facility] [place] 12:00:00 AM EDT ROUTINE VENIPUNCTURE 03/06/2020 NEXTGEN ([facility] 12:00:00 AM EDT [facility] 03/06/2020 [place]) 12:00:00 AM EDT OFFICE/OUTPATIENT VISIT, 10/25/2019 NEX TGEN ([facility] EST 12:00:00 AM EST [facility] - 10/25/2019 [place]) 12:00:00 AM EST OFFICE/OUTPATIENT VISIT, 06/09/2019 NEX TGEN ([facility] EST 12:00:00 AM EDT [facility] - 06/09/2019 [place]) 12:00:00 AM EDT ROUTINE VENIPUNCTURE 06/09/2019 NEXTGEN ([facility] 12:00:00 AM EDT [facility] - 06/09/2019 [place]) 12:00:00 AM EDT Results ID Date Data Source [id number] 06/05/2020 12:00:00 PM EDT [facility] Name Value Range Interpretation Description Data Sup porting Code Source(s) Document(s ) SARS [facility] coronavirus 2 RNA This lab was ordered by Health system and reported by [facility]. ID Date Data Source GFR(Creatinine).[id number] 05/10/2020 03:15:00 PM EDT [facility] 0-0400 Name Value Range Interpretation Code Description Data Val rce(s) Supporting Document(s ) UNK > 60 Below low normal <content [facility] styleCode="Bold"> Medical Cent er EGFR </content>48 GFR L<content styleCode="Italic s"> (> 60 GFR)</content> ID Date Data Source [id number] 05/10/2020 03:15:[address] [facility] Name Value Range Interpretation Description Data Sup porting Code Source(s) Document(s ) Chloride 98-107 <content [facility] [Moles/volume] styleCode="Dinesh Amy in Serum or d">Chloride Medical Plasma </content>103 Center MEQ/L<content styleCode="Maricarmen lics"> (98-107 MEQ/L)</conten t> Sodium 137-145 <content [facility] [Moles/volume] styleCode="Dinesh Amy in Serum or d">Sodium Medical Plasma </content>138 Center MEQ/L<content styleCode="Maricarmen lics"> (137-145 MEQ/L)</conten t> Carbon 22-30 <content [facility] dioxide, total styleCode="Dinesh Willards [Moles/volume] d">Carbon Medical in Serum or Dioxide Center Plasma </content>29 MEQ/L<content styleCode="Maricarmen lics"> (22-30 MEQ/L)</conten t> Potassium 3.5-5.3 <content [facility] [Moles/volume] styleCode="Dinesh Amy in Serum or d">Potassium Medical Plasma </content>4.1 Center MEQ/L<content styleCode="Maricarmen lics"> (3.5-5.3 MEQ/L)</conten t> UNK 7-17 <content Saint styleCode="Dinesh Amy d">BUN Medical </content>17 Center MG/DL<content styleCode="Maricarmen lics"> (7-17 MG/DL)</conten t> Calcium 8.4-10.2 <content [facility] [Mass/volume] styleCode="Dinesh Amy in Serum or d">Calcium Medical Plasma [...] (0.5-1.3 MG/DL)</conten t> ID Date Data Source [facility] ecg 05/10/2020 04:50:19 AM EDT eCW1 ([facility]) Name Value Range Interpretation Code Description Data Val rce(s) Supporting Document(s ) cvc ecg eCW1 ([facility]) ID Date Data Source ECG [facility] 05/10/2020 03:45:51 AM EDT eCW1 ([facility] PC) Name Value Range Interpretation Code Description Data Val rce(s) Supporting Document(s ) ECG [facility] eCW1 ([facility]) ID Date Data Source Echocardiogram 05/08/2020 12:45:43 PM EDT eCW1 ([facility] PC) Name Value Range Interpretation Code Description Data Val rce(s) Supporting Document(s ) Echocardiogram eCW1 ([facility]) ID Date Data Source [id number] 04/18/2020 12:00:00 AM EDT [facility] Name Value Range Interpretation Code Description Data Val rce(s) Supporting Document(s ) 2019-nCoV [facility] RNA XXX DELVIS+probe- Imp This lab was ordered by [facility] and reported by [facility]. ID Date Data Source Liver 03/08/2020 10:40:00 AM EDT [facility] Profile.[id number] Name Value Range Interpretation Description Data Sup [...] s"> (3.5-5.0 G/DL)</content> ID Date Data Source LIPID.[id number] 03/08/2020 10:40:00 AM EDT [facility] Name Value Range Interpretation Description Data Sup porting Code Source(s) Document(s ) Triglyceride < 150 <content [facility] [Mass/volume] in styleCode="[facility] Serum or Plasma d">Triglycerid [facility] </content>58 MG/DL<content styleCode="Maricarmen lics"> (< 150 MG/DL)</conten t> UNK > 60 Below low normal <content [facility] styleCode="Dinesh Amy d">HDL- Medical Cholesterol Center </content>54 MG/DL L<content styleCode="Maricarmen lics"> (> 60 MG/DL)</conten t> Cholesterol -<200 <content [facility] [Mass/volume] in styleCode="Dinesh Amy Serum or Plasma d">Cholesterol Medical </content>183 Center MG/DL<content styleCode="Maricarmen lics"> (-<200 MG/DL)</conten t> UNK < 100 Above high normal <content [facility] styleCode="Dinesh Amy d">LDL-Cholest [facility] </content>117 MG/DL H<content styleCode="Maricarmen lics"> (< 100 MG/DL)</conten t> ID Date Data Source HematologyRou.[id number] 03/08/2020 10:40:00 AM EDT [facility] 0400 Name Value Range Interpretation Description [...] ics"> (0 /100)</content> ID Date Data Source GFR(Creatinine).[id number] 03/08/2020 10:40:00 AM EDT [facility] 0-0400 Name Value Range Interpretation Code Description Data Val rce(s) Supporting Document(s ) UNK > 60 <content [facility] styleCode="Bold"> Medical Cent er EGFR </content>67 GFR<content styleCode="Italic s"> (> 60 GFR)</content> ID Date Data Source CHMROUTINECCDA.[id number] 03/08/2020 10:40:00 AM EDT [facility] -0400 Name Value Range Interpretation Description Data Sup porting Code Source(s) Document(s ) UNK >= 1.0 <content [facility] styleCode="Bold Medical ">AG Ratio Center </content>1.3 <content styleCode="Ital ics"> (>= 1.0 )</content> UNK 4.2-5.8 <content [facility] styleCode="Bold Medical ">Hemoglobin Center A1C </content>5.8 %<content styleCode="Ital ics"> (4.2-5.8 %)</content> Protein 6.3-8.2 <content [facility] [Mass/volum styleCode="Bold Medical e] in Serum ">Total Protein Center or Plasma </content>6.8 G/DL<content styleCode="Ital ics"> (6.3-8.2 G/DL)</content> UNK 2.3-3.5 <content [facility] styleCode="Bold Medical ">Globulin Center </content>3.0 G/DL<content styleCode="Ital ics"> (2.3-3.5 G/DL)</content> ID Date Data Source [id number] 03/08/2020 10:40:00 AM EDT [facility] Center Name Value Range Interpretation Description Data Sup porting Code Source(s) Document(s ) Sodium 137-145 <content [facility] [Moles/volume] in styleCode="Bold"> [facility] Serum or Plasma Sodium Medical </content>139 Center MEQ/L<content styleCode="Italic s"> (137-145 MEQ/L)</content> Potassium 3.5-5.3 <content [facility] [Moles/volume] in styleCode="Bold"> [facility] Serum or Plasma Potassium Medical </content>3.9 Center MEQ/L<content styleCode="Italic s"> (3.5-5.3 MEQ/L)</content> Chloride 98-107 <content [facility] [Moles/volume] in styleCode="Bold"> [facility] Serum or Plasma Chloride Medical </content>105 Center [...] IU/L)</content> UNK > 60 <content [facility] styleCode="Bold"> [facility] EGFR </content>67 Medical GFR<content Center styleCode="Italic s"> (> 60 GFR)</content> Bilirubin.total 0.2-1.3 <content [facility] [Mass/volume] in styleCode="Bold"> [facility] hs Serum or Plasma Bilirubin Total Medical </content>0.7 Center MG/DL<content styleCode="Italic s"> (0.2-1.3 MG/DL)</content> Albumin 3.5-5.0 <content [facility] [Mass/volume] in styleCode="Bold"> [facility] hs Serum or Plasma Albumin Medical </content>3.8 Center G/DL<content styleCode="Italic s"> (3.5-5.0 G/DL)</content> ID Date Data Source Liver 10/25/2019 10:26:00 AM EST [facility] Profile.[id number] Name Value Range Interpretation Description Data Sup [...] s"> (7-30 IU/L)</content> ID Date Data Source GFR(Creatinine).[id number] 10/25/2019 10:26:00 AM [facility] 0-0500 Name Value Range Interpretation Code Description Data Val rce(s) Supporting Document(s ) UNK > 60 Below low normal <content [facility] styleCode="Bold"> Medical Cent er EGFR </content>59 GFR L<content styleCode="Italic s"> (> 60 GFR)</content> ID Date Data Source CHMROUTINECCDA.[id number] 10/25/2019 10:26:00 AM EST [facility] -0500 Name Value Range Interpretation Description Data Sup porting Code Source(s) Document(s ) UNK >= 1.0 <content [facility] styleCode="Bold Medical ">AG Ratio Center </content>1.4 <content styleCode="Ital ics"> (>= 1.0 )</content> UNK 2.3-3.5 <content [facility] styleCode="Bold Medical ">Globulin Center </content>3.0 G/DL<content styleCode="Ital ics"> (2.3-3.5 G/DL)</content> Protein 6.3-8.2 <content [facility] [Mass/volum styleCode="Bold Medical e] in Serum ">Total Protein Center or Plasma </content>7.1 G/DL<content styleCode="Ital ics"> (6.3-8.2 G/DL)</content> ID Date Data Source [id number] 10/25/2019 10:26:00 AM EST [facility] Name Value Range Interpretation Description Data Sup porting Code Source(s) Document(s ) Potassium 3.5-5.3 <content [facility] [Moles/volume] in styleCode="Bold"> [facility] Serum or Plasma Potassium Medical </content>4.1 Center MEQ/L<content styleCode="Italic s"> (3.5-5.3 MEQ/L)</content> Chloride 98-107 <content [facility] [Moles/volume] in styleCode="Bold"> [facility] Serum or Plasma Chloride Medical </content>103 Center MEQ/L<content styleCode="Italic s"> (98-107 MEQ/L)</content> Sodium 137-145 <content [facility] [Moles/volume] in styleCode="Bold"> [facility] Serum or Plasma Sodium Medical </content>141 Center [...] IU/L)</content> Alkaline 38-126 <content [facility] phosphatase styleCode="Bold"> [facility] [Enzymatic Alkaline Medical activity/volume] Phosphatase (ALP) Cente [...] Data Source Liver 06/09/2019 10:54:00 AM EDT [facility] [id number] Name Value Range Interpretation Description Data Sup [...] s"> (7-30 IU/L)</content> ID Date Data Source LIPID.[id number] 06/09/2019 10:54:00 AM EDT [facility] Center Name Value Range Interpretation [...] Below low normal <content Saint styleCode="Dinesh Amy d">HDL- Medical Cholesterol Center </content>49 MG/DL L<content styleCode="Maricarmen lics"> (> 60 MG/DL)</conten t> UNK < 100 Above high normal <content [facility] styleCode="Dinesh Amy d">LDL-Cholest Medical donny Center </content>113 MG/DL H<content styleCode="Maricarmen lics"> (< 100 MG/DL)</conten t> ID Date Data Source HematologyRou.[id number] 06/09/2019 10:54:00 AM EDT Jose Alejandro [facility] 0400 Name Value Range Interpretation Description [...] (0-0.1 KCUMM)</content > ID Date Data Source GFR(Creatinine).[id number] 06/09/2019 10:54:00 AM EDT [facility] 0-0400 Name Value Range Interpretation Code Description Data Val rce(s) Supporting Document(s ) UNK > 60 Below low normal <content [facility] styleCode="Bold"> Medical Cent er EGFR </content>60 GFR L<content styleCode="Italic s"> (> 60 GFR)</content> ID Date Data Source CHMROUTINECCDA.[id number] 06/09/2019 10:54:00 AM EDT [facility] -0400 Name Value Range Interpretation Description Data Sup porting Code Source(s) Document(s ) UNK 2.3-3.5 <content [facility] styleCode="Bold Medical ">Globulin Center </content>3.1 G/DL<content styleCode="Ital [...] (>= 1.0 )</content> ID Date Data Source [facility].[id number] 06/09/2019 10:54:00 AM EDT [facility] Center Name Value Range Interpretation Description Data Sup porting Code Source(s) Document(s ) Potassium 3.5-5.3 <content [facility] [Moles/volume] in styleCode="Bold"> [facility] Serum or Plasma Potassium Medical </content>4.6 Center MEQ/L<content styleCode="Italic s"> (3.5-5.3 MEQ/L)</content> Sodium 137-145 <content [facility] [Moles/volume] in styleCode="Bold"> [facility] Serum or Plasma Sodium Medical </content>143 Center MEQ/L<content styleCode="Italic s"> (137-145 MEQ/L)</content> Chloride 98-107 <content [facility] [Moles/volume] in styleCode="Bold"> [facility] Serum or Plasma Chloride Medical </content>107 Center MEQ/L<content styleCode="Italic s"> (98-107 MEQ/L)</content> UNK 7-17 <content [facility] styleCode="Bold"> Amy BUN </content>15 Medical MG/DL<content Center [...] (Jose Alejandro nt Details 12:00:00 AM EDT [facility]) Smoking 05/31/2020 Unknown if completed Unknown if ever NEXTGEN ( Saint 12:00:00 AM EDT ever smoked smoked [facility]) Smoking 05/10/2020 Never Smoker completed Never Smoker eCW1 (Srinivasan t 12:00:00 AM EDT [facility]) Smoking 05/10/2020 Never Smoker completed Never Smoker eCW1 (Srinivasan t 12:00:00 AM T [facility]) Smoking 05/10/2020 Never Smoker completed Never Smoker eCW1 (Srinivasan t 12:00:00 AM EDT [facility]) Smoking 05/10/2020 Never Smoker completed Never Smoker eCW1 (Srinivasan t 12:00:00 AM EDT [facility]) Smoking 05/10/2020 Never Smoker completed Never Smoker eCW1 (Srinivasan t 12:00:00 AM EDT [facility]) Smoking 05/10/2020 Never Smoker completed Never Smoker eCW1 (Srinivasan t 12:00:00 AM EDT [facility]) Smoking 05/10/2020 Never Smoker completed Never Smoker eCW1 (Srinivasan t 12:00:00 AM [facility]) Smoking 04/10/2020 Never Smoker completed Never Smoker eCW1 ([facility] t 12:00:00 AM [facility]) Caffeine Use 04/03/2020 completed NEXTGEN ([facility] nt Details 12:00:00 AM [facility]) Vital Signs ID Date Data Source UNK Name Value Range Interpretation Code Description Data Source(s) Oxygen saturation 100 % 100 % NEXTGEN (Saint in Arterial blood [facility] Pulse oxim[facility]) Body mass index 33.61 kg/m2 Overweight 33.61 kg/m2 NEXTGEN ([facility] (BMI) [Ratio] [facility]) Respiratory rate 20 /min 20 /min [facility] ([facility]) Body temperature 36.94 Nadiya 36.94 Nadiya [facility] ([facility]) Heart rate 61 /min 61 /min [facility] ([facility]) Diastolic blood 70 mm[Hg] 70 mm[Hg] [facility] pressure [facility]) Systolic blood 141 mm[Hg] 141 mm[Hg] NEXTGEN (S nt pressure [facility]) Body weight 79.379 kg 79.379 kg [facility] Body height 153.67 cm 153.67 cm [facility] ([facility]) Diastolic blood 48 mm[Hg] 48 mm[Hg] eCW1 ([facility] pressure [facility]) Systolic blood 130 mm[Hg] 130 mm[Hg] eCW1 ([facility] pressure [facility]) Oxygen saturation 98 % 98 % eCW1 (S aint in Arterial blood [facility] by Pulse oximetry Practic e ) Body temperature 97.9 [degF] 97.9 [degF] eCW1 ( [facility]) Respiratory rate 18 /min 18 /min eCW1 ([facility]) Heart rate 46 /min 46 /min eCW1 ([facility]) Body mass index 32.55 kg/m2 32.55 kg/m2 eCW1 (S aint (BMI) [Ratio] [facility]) Body weight 178 [lb_av] 178 [lb_av] eCW1 ([facility]) Body height [in_i] eCW1 ([facility]) Diastolic blood 90 mm[Hg] 90 mm[Hg] eCW1 (Jose Alejandro nt pressure [facility]) Systolic blood 180 mm[Hg] 180 mm[Hg] eCW1 (Srinivasan t pressure [facility]) Oxygen saturation 96 % 96 % eCW1 (S aint in Arterial blood [facility] by Pulse oximetry Practic [facility]) Body temperature 97.8 [degF] 97.8 [degF] eCW1 ( [facility]) Respiratory rate 18 /min 18 /min eCW1 ( int [facility]) Heart rate 89 /min 89 /min eCW1 ([facility]) Body mass index 32.55 kg/m2 32.55 kg/m2 eCW1 (S aint (BMI) [Ratio] [facility]) Body weight 178 [lb_av] 178 [lb_av] eCW1 ([facility]) Body height [in_i] eCW1 ([facility]) Heart rate 42 /min 42 /min NEXTGEN ([facility]) Diastolic blood 72 mm[Hg] 72 mm[Hg] NEXTGEN ( [facility]) Systolic blood 151 mm[Hg] 151 mm[Hg] NEXTGEN (S aint [facility]) Oxygen saturation 99 % 99 % NEXTGEN ([facility] in Arterial blood [facility]ulse [facility]xim[facility] Center) Body mass index 34.00 kg/m2 Overweight 34.00 kg/m2 NEXTGEN (Saint (BMI) [Ratio] [facility]) Respiratory rate 18 /min 18 /min NEXTGEN ([facility]) Body temperature 36.72 Nadiya 36.72 Nadiya NEXTGEN ([facility]) Heart rate 49 /min 49 /min NEXTGEN ([facility]) Diastolic blood 69 mm[Hg] 69 mm[Hg] NEXTGEN ( [facility]) Systolic blood 170 mm[Hg] 170 mm[Hg] NEXTGEN (S aint pressure [facility]) Body weight 80.286 kg 80.286 kg NEXTGEN ([facility]) Body height 153.67 cm 153.67 cm NEXTGEN ([facility]) Diastolic blood 74 mm[Hg] 74 mm[Hg] eCW1 (Jose Alejandro nt pressure [facility]) Systolic blood 148 mm[Hg] 148 mm[Hg] eCW1 ([facility] t pressure [facility]) Oxygen saturation 99 % 99 % eCW1 (S aint in Arterial blood [facility] e ) Body temperature 98.2 [degF] 98.2 [degF] eCW1 ( [facility]) Respiratory rate 18 /min 18 /min eCW1 ([facility]) Heart rate 43 /min 43 /min eCW1 ([facility]) Body mass index 34.38 kg/m2 34.38 kg/m2 eCW1 (S aint (BMI) [Ratio] [facility]) Body weight 188 [lb_av] 188 [lb_av] eCW1 ([facility]) Body height [in_i] eCW1 ([facility]) Diastolic blood 82 mm[Hg] 82 mm[Hg] NEXTGEN ( [facility]) Systolic blood 142 mm[Hg] 142 mm[Hg] NEXTGEN (S aint pressure [facility]) Oxygen saturation 97 % 97 % NEXTGEN (Saint in Arterial blood [facility]ulse [facility]) Body mass index 34.34 kg/m2 Overweight 34.34 kg/m2 NEXTGEN (Saint (BMI) [Ratio] [facility]) Respiratory rate 20 /min 20 /min NEXTGEN ([facility]) Body temperature 36.72 Nadiya 36.72 Nadiya NEXTGEN ([facility]) Heart rate 69 /min 69 /min NEXTGEN ([facility]) Diastolic blood 76 mm[Hg] 76 mm[Hg] NEXTGEN ( [facility]) Systolic blood 151 mm[Hg] 151 mm[Hg] NEXTGEN (S aint pressure [facility]) Body weight 81.102 kg 81.102 kg NEXTGEN ([facility]) Body height 153.67 cm 153.67 cm [facility]) Oxygen saturation 96 % 96 % NEXTGEN ([facility] in Arterial blood [facility]) Body mass index 33.92 kg/m2 Overweight 33.92 kg/m2 NEXTGEN ([facility] (BMI) [Ratio] [facility]) Respiratory rate 20 /min 20 /min NEXTGEN ([facility]) Body temperature 36.11 Nadiya 36.11 Nadiya NEXTGEN ([facility]) Heart rate 50 /min 50 /min NEXTGEN ([facility]) Body weight 80.104 kg 80.104 [facility]) Body height 153.67 cm 153.67 cm [facility]) Oxygen saturation 99 % 99 % NEXTGEN ([facility] in Arterial blood [facility]) Body mass index 33.42 kg/m2 Overweight 33.42 kg/m2 NEXTGEN ([facility] (BMI) [Ratio] [facility]) Respiratory rate 18 /min 18 /min NEXTGEN ([facility]) Body temperature 36.61 Nadiya 36.61 Nadiya [facility]) Heart rate 69 /min 69 /min NEXTGEN ([facility]) Diastolic blood 71 mm[Hg] 71 mm[Hg] NEXTGEN ( [facility] pressure [facility]) Systolic blood 143 mm[Hg] 143 mm[Hg] NEXTGEN (S aint pressure [facility]) Body weight 78.925 kg 78.925 kg [facility]) Body height 153.67 cm 153.67 cm [facility]) Oxygen saturation 97 % 97 % NEXTGEN ([facility] in Arterial blood [facility]) Body mass index 35.34 kg/m2 Overweight 35.34 kg/m2 NEXTGEN ([facility] (BMI) [Ratio] [facility]) Respiratory rate 18 /min 18 /min [facility]) Body temperature 36.83 Nadiya 36.83 Nadiya [facility] ([facility]) Heart rate 62 /min 62 /min [facility] ([facility]) Diastolic blood 63 mm[Hg] 63 mm[Hg] [facility] ( [facility] pressure [facility]) Systolic blood 130 mm[Hg] 130 mm[Hg] [facility] (S aint pressure [facility]) Body weight 83.461 kg 83.461 kg [facility] ([facility]) Body height 153.67 cm 153.67 cm [facility] ([facility]) Patient Treatment Plan of Care Planned Activity Planned Date Details Description Data Source (s) Ibuprofen 200 MG Oral Capsule 05/31/2020 NEXTGEN (Saint 12:00:00 AM [facility]) Cyclobenzaprine hydrochloride 05/31/2020 NEXTGEN (Saint 5 MG Oral Tablet 12:00:00 AM [facility]) Amlodipine 5 MG / Benazepril 05/31/2020 NEXTGEN (Saint hydrochloride 20 MG Oral 12:00:00 AM [facility]) POLYETHYLENE GLYCOL 3350 105 04/10/2020 eCW1 (Saint Amy MG/ML / Potassium Chloride 12:00:00 AM [facility] 0.22177 MEQ/ML / Sodium PC) Bicarbonate 0.017 MEQ/ML / Sodium Chloride 0.0479 MEQ/ML Oral Solution [NuLytely] Hydrochlorothiazide 25 MG 04/03/2020 NE XTGEN (Saint Oral Tablet 12:00:00 AM [facility]) atorvastatin 20 MG Oral 04/03/2020 NEXT GEN (Saint Tablet 12:00:00 AM [facility]) Aspirin 81 MG Delayed Release 04/03/2020 NEXTGEN (Saint Oral Tablet 12:00:00 AM [facility]) Centrum Silver Women 8 mg 03/06/2020 NE XTGEN (Saint iron-400 mcg-300 mcg tablet 12:00:00 AM [facility]) Hydrochlorothiazide 25 MG 03/06/2020 NE XTGEN (Saint Oral Tablet 12:00:00 AM [facility]) Hydrochlorothiazide 25 MG 10/25/2019 NE XTGEN (Saint Oral Tablet 12:00:00 AM [facility]) Shingrix (PF) 50 mcg/0.5 mL 06/09/2019 NEXTGEN (Saint intramuscular suspension, kit 12:00:00 AM [facility]) atorvastatin 10 MG Oral 04/25/2019 NEXT GEN (Saint Tablet 12:00:00 AM [facility]) Amoxicillin 875 MG / 04/15/2019 NEXTGEN (Saint Clavulanate 125 MG Oral 12:00:00 AM [facility] Medical Tablet [Augmentin] Center) Hydrochlorothiazide 25 MG 03/14/2019 NE XTGEN (Saint Oral Tablet 12:00:00 AM [facility]) Aspirin 81 MG Chewable Tablet 06/17/2018 NEXTGEN (Saint 12:00:00 AM [facility]) atorvastatin 10 MG Oral 06/17/2018 NEXT GEN (Saint Tablet 12:00:00 AM [facility])
[2020-06-19] MEDS ORDERED: PATIENT'S OWN MEDICATION (NON-FORMULARY) (Amlodipine Besylate/Benazepril [Amlodipine-Benaz PO SCH (19:00)
[2020-06-19] MEDS: ATORVASTATIN CA 20 MG TABLET (FP) PO SCH (22:20)
[2020-06-19] MEDS: amLODIPine BESYLATE 5 MG TABLET (FP) PO SCH (22:21)
[2020-06-19] MEDS: LISINOPRIL 20 MG TABLET PO SCH (22:21)
[2020-06-19] MEDS: ASPIRIN COATED 81 MG TABLET.EC PO SCH (22:21)
[2020-06-20 01:09] VITALS: BMI 33.7
[2020-06-20] MEDS ORDERED: HEPARIN NA (PORCINE) 5,000 UNITS/ML 1ML VIAL SQ SCH (06:00)
[2020-06-20 08:21] LABS: ALBUMIN 3.4 g/dl (3.4-5.0); BILIRUBIN,TOTAL 1.1 mg/dl (0.2-1); CALCIUM 9.1 mg/dl (8.5-10); POTASSIUM 4.4 mmol/L (3.5-5.1)
[2020-06-20 08:22] LABS: BASO % 1.7 % (0-2.0); EOS % 1.5 % (0-4.5); HEMATOCRIT 34.3 % (32.4-45.2); HEMOGLOBIN 11.3 GM/dl (10.7-15.3); LYMPH % 36.1 % (8-40); MCH 31.2 pg (25.7-33.7); MCHC 32.9 g/dl (32.0-36.0); MEAN CELL VOLUME 94.8 fl (80-96); MEAN PLT VOLUME 11.7 fl (7.5-11.1); MONO % 6.3 % (3.8-10.2); NEUT % 54.4 % (42.8-82.8); PLATELET COUNT 143 K/MM3 (134-434); RBC 3.62 M/mm3 (3.60-5.2); RDW 13.1 % (11.6-15.6); WHITE BLOOD COUNT 5.2 K/mm3 (4.0-10.8)
--- NOTE | 2020-06-20 09:53 | EKG ---
Test Reason : Blood Pressure : / mmHG Vent. Rate : 079 BPM Atrial Rate : 079 BPM P-R Int : 138 ms QRS Dur : 092 ms QT Int : 420 ms P-R-T Axes : 062 017 069 degrees QTc Int : 481 ms SINUS RHYTHM WITH FREQUENT PREMATURE VENTRICULAR COMPLEXES IN A PATTERN OF BIGEMINY POSSIBLE LEFT ATRIAL ENLARGEMENT BORDERLINE ECG WHEN COMPARED WITH ECG OF 20-MAY-2013 20:27, PREMATURE VENTRICULAR COMPLEXES ARE NOW PRESENT T WAVE AMPLITUDE HAS INCREASED IN INFERIOR LEADS T WAVE AMPLITUDE HAS INCREASED IN LATERAL LEADS QT HAS LENGTHENED Confirmed by MD Cedrick, Jed ([id number]) on 06/20/2020 9:53:31 AM Referred By: DR GONZALEZ Confirmed By:Jed Philip MD
--- NOTE | 2020-06-20 09:53 | EKG ---
Test Reason : Blood Pressure : / mmHG Vent. Rate : 069 BPM Atrial Rate : 053 BPM P-R Int : 148 ms QRS Dur : 094 ms QT Int : 458 ms P-R-T Axes : 059 -04 055 degrees QTc Int : 490 ms SINUS BRADYCARDIA WITH FREQUENT and consecutive PREMATURE VENTRICULAR COMPLEXES NONSPECIFIC T WAVE ABNORMALITY PROLONGED QT ABNORMAL ECG WHEN COMPARED WITH ECG OF 19-JUN-2020 13:21, NONSPECIFIC T WAVE ABNORMALITY, WORSE IN ANTERIOR LEADS Confirmed by MD Cedrick, Jed ([id number]) on 06/20/2020 9:53:01 AM Referred By: DR LARA Confirmed By:Jed Philip MD
[2020-06-20] MEDS ORDERED: CYCLOBENZAPRINE HCL 10 MG TABLET (FP) PO SCH (10:00)
[2020-06-20] MEDS: ASPIRIN COATED 81 MG TABLET.EC PO SCH (10:17)
[2020-06-20] MEDS: amLODIPine BESYLATE 5 MG TABLET (FP) PO SCH (10:18)
[2020-06-20] MEDS: LISINOPRIL 20 MG TABLET PO SCH (10:18)
--- NOTE | 2020-06-20 10:37 | PN ---
Progress Note, Physician History of Present Illness: Ms. Xie is a 64 yr old woman (b. [facility] [place]), with past medical history of hypertension, high cholesterol, obesity, post-menopausal, anxiety, who now presents to the emergency department with 3-day history of lightheadedness, worse with change in position associated with nausea and vomiting (2-3 episodes nonbilious non-bloody). Mild left upper quadrant pain. No headache. Denies chest pain shortness of breath but does endorse some left- sided shoulder discomfort. Symptoms are worse with standing alleviated by rest. Patient is a cook in a kitchen. Family hx CAD: sister had [facility] age 60 Pt works as a cook in a school; on her feet most of the work-day, often walking short distances. - Current Medication List Current Medications: Active Medications Amlodipine Besylate (Norvasc -) 5 mg PO DAILY [facility] Last Admin: 06/20/20 10:18 Dose: 5 mg Documented by: Aspirin (Ecotrin -) 81 mg PO DAILY [facility] Last Admin: 06/20/20 10:17 Dose: 81 mg Documented by: Atorvastatin Calcium (Lipitor -) 20 mg PO HS [facility] Last Admin: 06/19/20 22:20 Dose: 20 mg Documented by: Cyclobenzaprine HCl (Flexeril -) 5 mg PO DAILY [facility] Last Admin: 06/20/20 10:18 Dose: Not Given Documented by: Heparin Sodium (Porcine) (Heparin -) 5,000 unit SQ TID [facility] Last Admin: 06/20/20 05:27 Dose: 5,000 unit Documented by: Lisinopril (Prinivil) 20 mg PO DAILY [facility] Last Admin: 06/20/20 10:18 Dose: 20 mg Documented by: - Objective Vital Signs: Vital Signs Temperature 98.4 F 06/20/20 09:00 Pulse Rate 63 06/20/20 09:00 Respiratory Rate 18 06/20/20 09:00 Blood Pressure 144/71 06/20/20 09:00 O2 Sat by Pulse Oximetry (%) 98 06/20/20 09:00 Eyes: Yes: WNL, Conjunctiva Clear, EOM Intact HENT: Yes: WNL, Atraumatic, Normocephalic Neck: Yes: WNL, Supple, Trachea Midline Cardiovascular: Yes: WNL, Regular Rate and Rhythm Respiratory: Yes: WNL, Regular, CTA Bilaterally Gastrointestinal: Yes: WNL, Normal Bowel Sounds Genitourinary: Yes: WNL Musculoskeletal: Yes: WNL Extremities: Yes: WNL Edema: No Integumentary: Yes: WNL Neurological: Yes: WNL, Alert, Oriented ...Motor Strength: WNL Psychiatric: Yes: WNL Labs: CBC, BMP 06/20/20 07:05 06/20/20 07:05 INR, PTT INR 1.14 (0.82-1.09) 06/19/20 13:45 Assessment/Plan ? NonStemi ? false positive TNIs Pre-syncope Chest pain / Left shoulder pain HTN hyperlipidemia obesity family hx VA Periods of ventricular bigeminy ECHO nl EF Rec: Transfer to [facility] telemetry ASA Plavix IV Heparin MIBI stress test
[2020-06-20] MEDS ORDERED: HEPARIN NA (PORCINE) 5,000 UNITS/ML 1ML VIAL IVPUSH PRN ×2 (10:42)
[2020-06-20] MEDS ORDERED: HEPARIN SOD,PORK IN 0.45% NACL 25,000 UNIT/500 ML INFUS.BAG IVPB SCH (10:45)
[2020-06-20] MEDS ORDERED: CLOPIDOGREL BISULFATE 300 MG TABLET PO ONE (11:00)
--- NOTE | 2020-06-20 15:28 | ECHO ---
Version: 1 Name: TARAH SANDHU Exam: Adult Echocardiogram Study Date: 06/20/2020, 2:25 PM Age: 64 Years MMode/2D Measurements & Calculations IVSd: 0.88 cm LVIDs: 3.1 cm LVIDd: 4.5 cm LVPWd: 0.80 cm LVOT diam: 2.01 cm Ao root diam: 2.7 cm LA dimension: 2.8 cm Doppler Measurements & Calculations MV E max rolo: 60.1 cm/sec MV A max rolo: 78.1 cm/sec MV E/A: 0.77 MR max P.3 mmHg Ao max P.6 mmHg Ao mean P.7 mmHg Ao V2 max: 131.0 cm/sec PI end-d rolo: 85.7 cm/sec TR max rolo: 163.6 cm/sec TR max P.7 mmHg Left Ventricle The left ventricular size, thickness and function are normal. EF 58. Right Ventricle The right ventricle is normal in size and function. Atria Normal left and right atrial size and function. Mitral Valve The mitral valve is normal in structure and function. Tricuspid Valve The tricuspid valve is normal in structure and function. There is mild tricuspid regurgitation. PASP 15 mmHg. Aortic Valve The aortic valve is normal in structure and function. Pulmonic Valve The pulmonic valve is normal in structure and function. Great Vessels The aortic root is normal size. Pericardium/Pleura There is no pericardial effusion. Summary Statements The left ventricular size, thickness and function are normal EF 58 The right ventricle is normal in size and function. Normal left and right atrial size and function. The mitral valve is normal in structure and function. The tricuspid valve is normal in structure and function. There is mild tricuspid regurgitation. PASP 15 mmHg The aortic valve is normal in structure and function. MD Jed Philip 06/20/2020, 3:27 PM Ordering Physician: Anjel Latham Performed By: Farida Samuel
--- NOTE | 2020-06-20 16:04 | PN ---
Physical Exam: SUBJECTIVE: Patient seen and examined at bedside. Complains of pain to right and left side of neck. Denies chest pain. OBJECTIVE: Vital Signs Period Temp Pulse Resp BP Sys/Pineda Pulse Ox Last 24 Hr 98 F-98.8 F 55-84 16-18 94-156/48-89 96-100 GENERAL: The patient is awake, alert, and fully oriented, in no acute distress. LUNGS: Breath sounds equal, clear to auscultation bilaterally, no wheezes, no crackles, no accessory muscle use. HEART: Regular rate and rhythm, S1, S2 ABDOMEN: Soft, nontender, nondistended, normoactive bowel sounds, no guarding, no rebound, no hepatosplenomegaly, no masses. EXTREMITIES: 2+ pulses, warm, well-perfused, no edema. NEUROLOGICAL: Cranial nerves II through XII grossly intact. Normal speech, gait not observed. Laboratory Results - last 24 hr 06/19/20 06/19/20 06/19/20 13:45 13:45 16:00 WBC RBC Hgb Hct MCV MCH MCHC RDW Plt Count MPV Absolute Neuts (auto) Neutrophils % Lymphocytes % Monocytes % Eosinophils % Basophils % PTT (Actin FS) Sodium 140 Potassium 3.6 Chloride 107 Carbon Dioxide 26 Anion Gap 7 L BUN 12.0 Creatinine 1.0 Est GFR (CKD-EPI)AfAm 68.95 Est GFR (CKD-EPI)NonAf 59.49 Random Glucose 108 H Hemoglobin A1c % 5.3 Calcium 9.6 Magnesium Total Bilirubin 0.9 AST 23 ALT 14 Alkaline Phosphatase 85 Creatine Kinase Creatine Kinase Index CK-MB (CK-2) Troponin I Total Protein 7.6 Albumin 4.4 Triglycerides 107 Cholesterol 237 H Total LDL Cholesterol 153 H HDL Cholesterol 63 H TSH 2.82 COVID-19 ([facility]) Not detected 06/19/20 06/19/20 06/20/20 21:00 21:00 03:00 WBC RBC Hgb Hct MCV MCH MCHC RDW Plt Count MPV Absolute Neuts (auto) Neutrophils % Lymphocytes % Monocytes % Eosinophils % Basophils % PTT (Actin FS) Sodium Potassium Chloride Carbon Dioxide Anion Gap BUN Creatinine Est GFR (CKD-EPI)AfAm Est GFR (CKD-EPI)NonAf Random Glucose Hemoglobin A1c % Calcium Magnesium Total Bilirubin AST ALT Alkaline Phosphatase Creatine Kinase 162 Creatine Kinase Index 1.9 CK-MB (CK-2) 3.1 Troponin I 0.27 H < 0.02 Total Protein Albumin Triglycerides Cholesterol Total LDL Cholesterol HDL Cholesterol TSH COVID-19 ([facility]) 06/20/20 06/20/20 06/20/20 07:05 07:05 11:27 WBC 5.2 RBC 3.62 Hgb 11.3 Hct 34.3 MCV 94.8 MCH 31.2 MCHC 32.9 RDW 13.1 Plt Count 143 MPV 11.7 H Absolute Neuts (auto) 2.8 Neutrophils % 54.4 Lymphocytes % 36.1 Monocytes % 6.3 Eosinophils % 1.5 Basophils % 1.7 PTT (Actin FS) 31.0 Sodium 141 Potassium 4.4 Chloride 108 H Carbon Dioxide 27 Anion Gap 6 L BUN 18.0 Creatinine 1.0 Est GFR (CKD-EPI)AfAm 68.95 Est GFR (CKD-EPI)NonAf 59.49 Random Glucose 95 Hemoglobin A1c % Calcium 9.1 Magnesium 2.0 Total Bilirubin 1.1 H AST 19 ALT 13 Alkaline Phosphatase 63 D Creatine Kinase Creatine Kinase Index CK-MB (CK-2) Troponin I Total Protein 6.0 L Albumin 3.4 Triglycerides 32 Cholesterol 181 Total LDL Cholesterol 119 H HDL Cholesterol 56 TSH 2.05 COVID-19 ([facility]) Active Medications Generic Name Dose Route Start Last Admin Trade Name Freq PRN Reason Stop Dose Admin Amlodipine Besylate 5 mg 06/19/20 19:45 06/20/20 10:18 Norvasc - PO 5 mg DAILY [facility] Administration Aspirin 81 mg 06/19/20 18:45 06/20/20 10:17 Ecotrin - PO 81 mg DAILY [facility] Administration Atorvastatin Calcium 20 mg 06/19/20 22:00 06/19/20 22:20 Lipitor - PO 20 mg HS [facility] Administration Clopidogrel Bisulfate 75 mg 06/21/20 10:00 Plavix - PO DAILY [facility] Heparin Sodium (Porcine) 1,000 unit 06/20/20 10:42 Heparin - IVPUSH PRN PRN Heparin Heparin Sodium (Porcine) 5,000 unit 06/20/20 10:42 Heparin - IVPUSH PRN PRN Heparin HEPARIN SOD,PORK IN 0.45% NACL 25,000 unit in 500 mls @ 16 mls/hr 06/20/20 10:45 06/20/20 11:33 Heparin-1/2ns 25,000 Units/500 IVPB 800 units/hr TITR [facility] 16 mls/hr Administration Protocol 800 UNITS/HR Lisinopril 20 mg 06/19/20 19:45 06/20/20 10:18 Prinivil PO 20 mg DAILY [facility] Administration ASSESSMENT/PLAN: 64 year-old female with a PMH significant for HTN, HLD, admitted for pre syncope. Pre syncope --initial troponin negative; second troponin was reported as 0.27, however, this reported value has been canceled by [facility] due to a problem with the analyzer; the third troponin was negative --Yeison Aiken, Fabrizio aware of the incorrect troponin value --ECG: sinus rhythm with frequent PVCs, prolonged QT interval --US carotids: no significant stenosis --Echo: LV normal, EF 58%; RV normal; mild TR --telemetry monitoring --will defer to cardiology regarding further workup Hypertension --continue amlodipine, lisnopril Hyperlipidemia --continue Lipitor FEN Fluids: PO intake adequate Electrolytes: replete as indicated Nutrition: low sodium DVT prophylaxis: presently on heparin drip, defer to cardiology Dispo: continues to require inpatient care. Full code. Visit type - Emergency Visit Emergency Visit: Yes ED Registration Date: 06/20/20 Care time: The patient presented to the Emergency Department on the above date and was hospitalized for further evaluation of their emergent condition. - New Patient This patient is new to me today: No - Critical Care Critical Care patient: No
--- NOTE | 2020-06-20 17:09 | HOSP ---
Subjective - Review of Symptoms Events since last encounter: Advised by Dr. Pandya who spoke with Dr. Latham. Discontinue heparin drip. Physical Examination Vital Signs: Vital Signs Temperature 98.2 F 06/20/20 14:06 Pulse Rate 71 06/20/20 14:06 Respiratory Rate 16 06/20/20 14:06 Blood Pressure 122/55 L 06/20/20 14:06 O2 Sat by Pulse Oximetry (%) 98 06/20/20 14:06 Labs: CBC, BMP 06/20/20 07:05 06/20/20 07:05
[2020-06-20] MEDS: ATORVASTATIN CA 20 MG TABLET (FP) PO SCH (21:33)
[2020-06-21 08:24] LABS: BASO % 1.2 % (0-2.0); EOS % 2.1 % (0-4.5); HEMATOCRIT 35.2 % (32.4-45.2); HEMOGLOBIN 11.6 GM/dl (10.7-15.3); LYMPH % 35.2 % (8-40); MCH 31.3 pg (25.7-33.7); MEAN CELL VOLUME 94.7 fl (80-96); MEAN PLT VOLUME 10.3 fl (7.5-11.1); MONO % 6.7 % (3.8-10.2); NEUT % 54.8 % (42.8-82.8); PLATELET COUNT 145 K/MM3 (134-434); RBC 3.72 M/mm3 (3.60-5.2); WHITE BLOOD COUNT 4.8 K/mm3 (4.0-10.8)
[2020-06-21] MEDS: LISINOPRIL 20 MG TABLET PO SCH (09:03)
[2020-06-21] MEDS: amLODIPine BESYLATE 5 MG TABLET (FP) PO SCH (09:03)
[2020-06-21] MEDS ORDERED: CLOPIDOGREL BISULFATE 75 MG TABLET (FP) PO SCH (10:00)
--- NOTE | 2020-06-21 13:37 | PN ---
Progress Note, Physician Chief Complaint: Pt A&Ox3; asymptomatic History of Present Illness: Ms. Xie is a 64 yr old woman (b. [place]), with past medical history of hypertension, high cholesterol, obesity, post-menopausal, anxiety, who now presents to the emergency department with 3-day history of lighth eadedness, worse with change in position associated with nausea and vomiting (2- 3 episodes nonbilious non-bloody). Mild left upper quadrant pain. No headache. Denies chest pain shortness of breath but does endorse some left-sided shoulder discomfort. Symptoms are worse with standing alleviated by rest. Patient is a cook in a kitchen. Family hx CAD: sister had [place] age 60 Pt works as a cook in a school; on her feet most of the work-day, often walking short distances. - Current Medication List Current Medications: Active Medications Amlodipine Besylate (Norvasc -) 5 mg PO DAILY [facility] Last Admin: 06/21/20 09:03 Dose: Not Given Documented by: Aspirin (Ecotrin -) 81 mg PO DAILY [facility] Last Admin: 06/20/20 10:17 Dose: 81 mg Documented by: Atorvastatin Calcium (Lipitor -) 20 mg PO HS [facility] Last Admin: 06/20/20 21:33 Dose: 20 mg Documented by: Clopidogrel Bisulfate (Plavix -) 75 mg PO DAILY [facility] Lisinopril (Prinivil) 20 mg PO DAILY [facility] Last Admin: 06/21/20 09:03 Dose: Not Given Documented by: - Objective Vital Signs: Vital Signs Temperature 98.4 F 06/21/20 06:00 Pulse Rate 61 06/21/20 06:00 Respiratory Rate 18 06/21/20 06:00 Blood Pressure 113/64 06/21/20 06:00 O2 Sat by Pulse Oximetry (%) 100 06/21/20 07:00 Labs: CBC, BMP 06/21/20 07:17 06/20/20 07:05 INR, PTT INR 1.14 (0.82-1.09) 06/19/20 13:45 Assessment/Plan Pre-syncope Left shoulder pain HTN hyperlipidemia obesity family hx [place] Periods of ventricular bigeminy ECHO: normal LVEF; normal chamber sizes; Mild TR. Rec: Stress MIBI results pending. Carotid doppler: moderate plaque; no significant stenoses Atorvastatin, diet modification, exercise for hyperlipidemia. On amlodipine and lisinopril for HTN. Addendum: Stress MIBI: no myocardial ischemia. From cardiac standpoint, pt may be followed as an outpatient.
--- NOTE | 2020-06-21 17:28 | PN ---
Teaching Attending Note Name of Resident: Husam Shah ATTENDING PHYSICIAN STATEMENT I saw and evaluated the patient. I reviewed the resident's note and discussed the case with the resident. I agree with the resident's findings and plan as documented. SUBJECTIVE: Patient seen and examined at bedside, Nuclear stress test unremarkable for ischemia, pt. stable for DC home with titration of BP meds.VSS. OBJECTIVE: GA AAox3, speaking in full sentences HEENT NC/AT, EOMI, neck supple, dry MM Chest CTAB, no crackles CVS s1, S2+, RRR Abd Soft, NT, ND, BS+ Ext no LE edema Vital Signs (72 hours) 06/19/20 06/19/20 06/19/20 13:08 13:30 17:40 Temperature 99 F 98 F Pulse Rate 65 Pulse Rate [ 63 63 Apical] Pulse Rate [ Sitting] Pulse Rate [ Standing] Pulse Rate [ Supine] Respiratory 18 18 18 Rate Blood Pressure 186/84 H Blood Pressure 170/73 131/89 [Left Arm] Blood Pressure [Sitting] Blood Pressure [Standing] Blood Pressure [Supine] O2 Sat by Pulse 100 100 100 Oximetry (%) 06/19/20 06/19/20 06/19/20 19:46 21:00 22:22 Temperature 98.8 F 98.3 F Pulse Rate 65 65 Pulse Rate [ Apical] Pulse Rate [ 77 Sitting] Pulse Rate [ 84 Standing] Pulse Rate [ 66 Supine] Respiratory 18 18 Rate Blood Pressure 156/76 154/76 Blood Pressure [Left Arm] Blood Pressure 119/64 [Sitting] Blood Pressure 106/68 [Standing] Blood Pressure 110/50 L [Supine] O2 Sat by Pulse 100 98 Oximetry (%) 06/20/20 06/20/20 06/20/20 00:11 01:00 05:00 Temperature 98.3 F 98.1 F Pulse Rate 55 L 56 L Pulse Rate [ Apical] Pulse Rate [ Sitting] Pulse Rate [ Standing] Pulse Rate [ Supine] Respiratory 18 18 18 Rate Blood Pressure 100/55 L 94/48 L Blood Pressure [Left Arm] Blood Pressure [Sitting] Blood Pressure [Standing] Blood Pressure [Supine] O2 Sat by Pulse 96 96 98 Oximetry (%) 06/20/20 06/20/20 06/20/20 07:57 09:00 14:06 Temperature 98.4 F 98.2 F Pulse Rate 63 71 Pulse Rate [ Apical] Pulse Rate [ Sitting] Pulse Rate [ Standing] Pulse Rate [ Supine] Respiratory 18 16 Rate Blood Pressure 144/71 122/55 L Blood Pressure [Left Arm] Blood Pressure [Sitting] Blood Pressure [Standing] Blood Pressure [Supine] O2 Sat by Pulse 98 98 98 Oximetry (%) 06/20/20 06/20/20 06/20/20 19:30 22:00 23:00 Temperature 98.2 F 98.7 F Pulse Rate 52 L 62 Pulse Rate [ Apical] Pulse Rate [ Sitting] Pulse Rate [ Standing] Pulse Rate [ Supine] Respiratory 18 18 Rate Blood Pressure 102/58 L 103/51 L Blood Pressure [Left Arm] Blood Pressure [Sitting] Blood Pressure [Standing] Blood Pressure [Supine] O2 Sat by Pulse 97 98 Oximetry (%) 06/21/20 06/21/20 06/21/20 02:00 06:00 07:00 Temperature 98 F 98.4 F Pulse Rate 60 61 Pulse Rate [ Apical] Pulse Rate [ Sitting] Pulse Rate [ Standing] Pulse Rate [ Supine] Respiratory 18 18 Rate Blood Pressure 95/45 L 113/64 Blood Pressure [Left Arm] Blood Pressure [Sitting] Blood Pressure [Standing] Blood Pressure [Supine] O2 Sat by Pulse 96 100 100 Oximetry (%) 06/21/20 06/21/20 14:02 14:33 Temperature 97.9 F 97.7 F Pulse Rate 76 68 Pulse Rate [ Apical] Pulse Rate [ Sitting] Pulse Rate [ Standing] Pulse Rate [ Supine] Respiratory 18 18 Rate Blood Pressure 138/72 145/73 Blood Pressure [Left Arm] Blood Pressure [Sitting] Blood Pressure [Standing] Blood Pressure [Supine] O2 Sat by Pulse 98 Oximetry (%) Laboratory Results - last 24 hr 06/19/20 06/20/20 06/21/20 21:00 18:00 07:17 WBC 4.8 RBC 3.72 Hgb 11.6 Hct 35.2 MCV 94.7 MCH 31.3 MCHC 33.0 RDW 13.0 Plt Count 145 MPV 10.3 Absolute Neuts (auto) 2.6 Neutrophils % 54.8 Lymphocytes % 35.2 Monocytes % 6.7 Eosinophils % 2.1 Basophils % 1.2 PTT (Actin FS) 52.2 H Magnesium Troponin I 06/21/20 06/21/20 07:17 07:17 WBC RBC Hgb Hct MCV MCH MCHC RDW Plt Count MPV Absolute Neuts (auto) Neutrophils % Lymphocytes % Monocytes % Eosinophils % Basophils % PTT (Actin FS) 26.5 Magnesium 1.9 Troponin I Home Medications Medication Instructions Recorded Amlodipine Besylate 10 mg PO DAILY #30 tablet 06/21/20 Aspirin [ASA -] 81 mg PO DAILY #30 tab.chew 06/21/20 Atorvastatin Ca [Lipitor] 20 mg PO DAILY #30 tablet 06/21/20 Calcium 500Mg/Vit-D 200 Units 1 combo PO BID #60 tablet 06/21/20 [Os-Gordon 500+D -] Lisinopril 20 mg PO DAILY #30 tablet 06/21/20 Current Medications Generic Name Dose Route Start Last Admin Trade Name Freq PRN Reason Stop Dose Admin Amlodipine Besylate 5 mg 06/19/20 19:45 06/21/20 09:03 Norvasc - PO Not Given DAILY [facility] Aspirin 81 mg 06/19/20 18:45 06/20/20 10:17 Ecotrin - PO 81 mg DAILY [facility] Administration Atorvastatin Calcium 20 mg 06/19/20 22:00 06/20/20 21:33 Lipitor - PO 20 mg HS [facility] Administration Lisinopril 20 mg 06/19/20 19:45 06/21/20 09:03 Prinivil PO Not Given DAILY [facility] ASSESSMENT AND PLAN: 64 F HTN urgency HLD Obesity ACS ruled out Plan: Educated patient on medication compliance Adjusted BP meds to Norvasc 10mg and Lisinopril 20mg Add ASA 81mg daily, and moderate intensity statin Educated on DASH diet, follows [facility]/ [facility] [place] Follow w/ PMD [place] home with PMD follow up
[2020-06-21] MEDS: ASPIRIN COATED 81 MG TABLET.EC PO SCH (17:43)
[2020-06-21 17:44] LABS: ALBUMIN 3.6 g/dl (3.4-5.0); BILIRUBIN,TOTAL 0.9 mg/dL (0.2-1); BLOOD UREA NITROGEN 19.3 mg/dL (7-18); CALCIUM 9.1 mg/dL (8.5-10.1); CREATININE 1.1 mg/dL (0.55-1.3); TOT PROT 7.1 g/dl (6.4-8.2)
--- NOTE | 2020-06-21 18:04 | DS ---
Physical Exam: SUBJECTIVE: Patient seen and examined at bedside. She denies acute complaints. OBJECTIVE: Vital Signs Period Temp Pulse Resp BP Sys/Pineda Pulse Ox Last 24 Hr 97.7 F-98.7 F 52-76 18-18 95-145/45-73 96-100 PHYSICAL EXAM GENERAL: The patient is awake, alert, and fully oriented, in no acute distress. HEAD: Normal with no signs of trauma. EYES: PERRL, extraocular movements intact, sclera anicteric, conjunctiva clear. ENT: Ears normal, nares patent, oropharynx clear without exudates, moist mucous membranes. NECK: Trachea midline, full range of motion, supple. LUNGS: Breath sounds equal, clear to auscultation bilaterally, no wheezes, no crackles, no accessory muscle use. HEART: Regular rate and rhythm, S1, S2 without murmur, rub or gallop. ABDOMEN: Soft, nontender, nondistended, normoactive bowel sounds, no guarding, no rebound, no hepatosplenomegaly, no masses. EXTREMITIES: 2+ pulses, warm, well-perfused, no edema. NEUROLOGICAL: Cranial nerves II through XII grossly intact. Normal speech, gait not observed. PSYCH: Normal mood, normal affect. SKIN: Warm, dry, normal turgor, no rashes or lesions noted. LABS Laboratory Results - last 24 hr 06/19/20 06/20/20 06/21/20 21:00 18:00 07:17 WBC 4.8 RBC 3.72 Hgb 11.6 Hct 35.2 MCV 94.7 MCH 31.3 MCHC 33.0 RDW 13.0 Plt Count 145 MPV 10.3 Absolute Neuts (auto) 2.6 Neutrophils % 54.8 Lymphocytes % 35.2 Monocytes % 6.7 Eosinophils % 2.1 Basophils % 1.2 PTT (Actin FS) 52.2 H Sodium Potassium Chloride Carbon Dioxide Anion Gap BUN Creatinine Est GFR (CKD-EPI)AfAm Est GFR (CKD-EPI)NonAf Random Glucose Calcium Magnesium Total Bilirubin AST ALT Alkaline Phosphatase Troponin I Total Protein Albumin 06/21/20 06/21/20 06/21/20 07:17 07:17 16:44 WBC RBC Hgb Hct MCV MCH MCHC RDW Plt Count MPV Absolute Neuts (auto) Neutrophils % Lymphocytes % Monocytes % Eosinophils % Basophils % PTT (Actin FS) 26.5 Sodium 142 Potassium 4.0 Chloride 109 H Carbon Dioxide 27 Anion Gap 7 L BUN 19.3 H Creatinine 1.1 Est GFR (CKD-EPI)AfAm 61.44 Est GFR (CKD-EPI)NonAf 53.01 Random Glucose 115 H Calcium 9.1 Magnesium 1.9 Total Bilirubin 0.9 AST 25 ALT 19 Alkaline Phosphatase 88 Troponin I Total Protein 7.1 Albumin 3.6 HOSPITAL COURSE: Date of Admission:06/20/20 Date of Discharge: 06/21/20 Patient is a 64 year old female with history of hypertension, hyperlipidemia, presented with complaint of lightheadedness. She was evaluate by cardiology and underwent nuclear stress test which was unremarkable for ischemic changes. Blood pressure medications titrated to Amlodipine 10mg, and Lisinopril 20mg. Continued on moderate integrity Atorvastatin 20mg. Aspirin 81mg initiated. Patient cleared by cardiology and discharged home to follow up with cardiology, and primary care physician. Discharge Summary Problems reviewed: Yes Reason For Visit: NEAR SYNCOPE Current Active Problems Lightheaded (Acute) Condition: Stable - Instructions Diet, Activity, Other Instructions: You were admitted to the hospital for evaluation of lightheadedness. You were evaluated by the Patrol Supervisor and underwent a cardiac stress test which revealed no acute issues. You are stable for discharge home. Stop taking your Amlodipine- Benazepril You will take Amlodipine 10mg daily You will take Lisinopril 20mg daily You will take Aspirin 81mg daily Continue taking Atorvastatin 20mg daily Take Calcium Vitamin D tablet daily Follow up with your primary care physician within one -two days after discharge. A referral has been provided. Follow up with process lead within one week of discharge. A referral has been provided to Dr. Latham Return to the nearest emergency department if you experience worsening symptoms, subjective fevers, chills, shortness of breath, chest pain, palpitations, abdominal pain, nausea, vomiting, any trauma or loss of consciousness. Referrals: [facility] – [place], [place] [facility] [Provider Group] Anjel Latham MD [Staff Physician] - Disposition: HOME - Home Medications Comprehensive Discharge Medication List: Ambulatory Orders Amlodipine Besylate 10 mg PO DAILY #30 tablet 06/21/20 Aspirin [ASA -] 81 mg PO DAILY #30 tab.chew 06/21/20 Atorvastatin Ca [Lipitor] 20 mg PO DAILY #30 tablet 06/21/20 Calcium 500Mg/Vit-D 200 Units [Os-Gordon 500+D -] 1 combo PO BID #60 tablet 06/21/20 Lisinopril 20 mg PO DAILY #30 tablet 06/21/20 ATTENDING PHYSICIAN STATEMENT I saw and evaluated the patient. I reviewed the resident's note and discussed the case with the resident. I agree with the resident's findings and plan as documented. SUBJECTIVE: OBJECTIVE: ASSESSMENT AND PLAN:
[2020-06-21 18:18] VITALS: BP 140/62; PULSE 67; TEMP 97.6
== END 2020-06-21 18:51 | disposition home or self-care (01) | DRG 204 ==
LOC: FER 13:06 → FM/S 16:10 → INTOOBSV 16:10 → FM/S 18:46 → OBSVTOIN 06-20 11:49 → J4W 06-21 13:21
PROVIDERS: ADMIT Internal Medicine
DX: R55 Syncope and collapse (principal); I10 Essential (primary) hypertension; E78.5 Hyperlipidemia, unspecified; F41.9 Anxiety disorder, unspecified; I16.0 Hypertensive urgency; E66.9 Obesity, unspecified; I47.2 Ventricular tachycardia; Z68.33 Body mass index [BMI] 33.0-33.9, adult; M25.512 Pain in left shoulder; Z84.89 Family history of other specified conditions
CPT/HCPCS: 36415; 70450-TC; 71045-TC-FY; 78452-TC; 80053; 80061; 82550; 82553; 83036; 83721; 83735; 84443; 84484; 85025; 85027; 85610; 85730; 93005; 93017; 93306-TC; 93880-TC; 99285-25; A9502; C9803; G0378; J1644; U0003